=== PATIENT | female | born 1940 | race Caucasian/White ===

== ENCOUNTER → 2016-10-31 | Outpatient (CLI) | payer MEDICARE ==
[2016-10-31 08:05] LABS: ALT 35 U/L (9-52); AST 29 U/L (14-36); Cholesterol 161 mg/dL (<200); HDL Cholesterol 47 mg/dL (40-60); Triglycerides 395 mg/dL (<150)
== END | disposition home or self-care (01) ==
LOC: LABWHC1 07:32
PROVIDERS: ATTEND Internal Medicine Interventional Cardiology
DX: E78.2 Mixed hyperlipidemia (principal)
CPT/HCPCS: 36415; 80061; 84450; 84460

== ENCOUNTER → 2017-05-07 | Outpatient (CLI) | payer MEDICARE ==
[2017-05-07 08:43] LABS: ALT 36 U/L (9-52); AST 30 U/L (14-36); Alkaline Phosphatase 84 U/L (38-126); Anion Gap 11 mmol/L; Blood Urea Nitrogen 18 mg/dL (7-17); Calcium 9.2 mg/dL (8.4-10.2); Carbon Dioxide 25 mmol/L (22-30); Chloride 100 mmol/L (98-107); Cholesterol 188 mg/dL (<200); Glucose 104 mg/dL (74-99); HDL Cholesterol 46 mg/dL (40-60); Non-African American GFR(MDRD) >60 (>60 ml/min/1.73 sqM); Sodium 136 mmol/L (137-145); Total Bilirubin 0.5 mg/dL (0.2-1.3); Total Protein 6.9 g/dL (6.3-8.2)
== END | disposition home or self-care (01) ==
LOC: LABWHC1 07:43
PROVIDERS: ATTEND Internal Medicine Interventional Cardiology
DX: E78.2 Mixed hyperlipidemia (principal)
CPT/HCPCS: 36415; 80053; 80061

== ENCOUNTER → 2017-07-24 | Outpatient (CLI) | payer MEDICARE ==
[2017-07-24 08:27] LABS: ALT 213 U/L (9-52); AST 180 U/L (14-36); Cholesterol 198 mg/dL (<200); Creatine Kinase 96 U/L (30-135)
[2017-07-24 08:39] LABS: HDL Cholesterol 126 mg/dL (40-60)
== END | disposition home or self-care (01) ==
LOC: LABWHC1 07:49
PROVIDERS: ATTEND Internal Medicine Interventional Cardiology
DX: E78.2 Mixed hyperlipidemia (principal)
CPT/HCPCS: 36415; 80061; 82550; 84450; 84460

== ENCOUNTER → 2017-09-01 | Outpatient (CLI) | payer MEDICARE ==
[2017-09-01 08:49] LABS: ALT 40 U/L (9-52); AST 43 U/L (14-36)
== END | disposition home or self-care (01) ==
LOC: LABWHC1 08:12
PROVIDERS: ATTEND Internal Medicine Interventional Cardiology
DX: E78.2 Mixed hyperlipidemia (principal)
CPT/HCPCS: 36415; 84450; 84460

== ENCOUNTER → 2017-10-23 | Outpatient (CLI) | payer MEDICARE ==
[2017-10-23 08:52] LABS: ALT 31 U/L (9-52); AST 33 U/L (14-36); Cholesterol 135 mg/dL (<200); Creatine Kinase 88 U/L (30-135); HDL Cholesterol 57 mg/dL (40-60); LDL Cholesterol,Calculated 45 mg/dL (0-99); Triglycerides 165 mg/dL (<150)
== END | disposition home or self-care (01) ==
LOC: LABWHC1 08:07
PROVIDERS: ATTEND Internal Medicine Interventional Cardiology
DX: E78.2 Mixed hyperlipidemia (principal)
CPT/HCPCS: 36415; 80061; 82550; 84450; 84460

== ENCOUNTER → 2018-04-29 | Outpatient (CLI) | payer MEDICARE ==
[2018-04-29 08:58] LABS: Albumin 4.1 g/dL (3.5-5.0); Calcium 9.3 mg/dL (8.4-10.2); Potassium 4.3 mmol/L (3.5-5.1); Total Bilirubin 0.7 mg/dL (0.2-1.3); Total Protein 6.7 g/dL (6.3-8.2)
== END | disposition home or self-care (01) ==
LOC: LABWHC1 08:14
PROVIDERS: ATTEND Internal Medicine Interventional Cardiology
DX: E78.2 Mixed hyperlipidemia (principal)
CPT/HCPCS: 36415; 80053; 80061

== ENCOUNTER → 2018-11-03 | Outpatient (CLI) | payer MEDICARE ==
[2018-11-03 17:28] LABS: LDL Cholesterol,Calculated 41.4 mg/dL (0.0-131.0); VLDL Calculation 25.6 mg/dL (5.00-40.00)
== END | disposition home or self-care (01) ==
LOC: LABWHC1 08:17
PROVIDERS: ATTEND Internal Medicine Interventional Cardiology
DX: E78.2 Mixed hyperlipidemia (principal)
CPT/HCPCS: 36415; 80061; 84450; 84460

== ENCOUNTER → 2019-06-01 | Outpatient (CLI) | payer MEDICARE ==
[2019-06-01 18:07] LABS: African American GFR (CKD) 80.7 (60.0-200.0); Albumin 4.4 g/dL (3.80-4.90); Albumin/Globulin Ratio 2.32 (1.60-3.17); Anion Gap 7.1 mmol/L (4.00-12.00); BUN/Creat Ratio 31.25 Ratio (12.00-20.00); Calcium 9.1 mg/dL (8.7-10.3); Carbon Dioxide 27.9 mmol/L (21.6-31.8); Chol/HDL Ratio 2.53; Globulin 1.9 g/dL (1.6-3.3); LDL Cholesterol,Calculated 38.8 mg/dL (0.0-131.0); Potassium 4.3 mmol/L (3.5-5.5); Total Bilirubin 0.6 mg/dL (0.3-1.2); Total Protein 6.3 g/dL (6.2-8.2); VLDL Calculation 33.2 mg/dL (5.00-40.00)
== END | disposition home or self-care (01) ==
LOC: LABWHC1 09:06
PROVIDERS: ATTEND Nurse Practitioner Adult Health
DX: E78.2 Mixed hyperlipidemia (principal)
CPT/HCPCS: 36415; 80053; 80061

== ENCOUNTER → 2020-06-07 | Outpatient (CLI) | payer MEDICARE ==
[2020-06-07 18:19] LABS: African American GFR (CKD) 79.6 (60.0-200.0); Albumin 4.4 g/dL (3.80-4.90); Albumin/Globulin Ratio 2.2 (1.60-3.17); Anion Gap 7.7 mmol/L (4.00-12.00); BUN/Creat Ratio 22.5 Ratio (12.00-20.00); Calcium 9.7 mg/dL (8.7-10.3); Carbon Dioxide 27.3 mmol/L (21.6-31.8); Chol/HDL Ratio 2.68; LDL Cholesterol,Calculated 55.6 mg/dL (0.0-131.0); Non-African American GFR(CKD) 68.7 (60.0-200.0); Potassium 5.2 mmol/L (3.5-5.5); Total Bilirubin 0.9 mg/dL (0.3-1.2); Total Protein 6.4 g/dL (6.2-8.2); VLDL Calculation 28.4 mg/dL (5.00-40.00)
== END | disposition home or self-care (01) ==
LOC: LABWHC1 07:46
PROVIDERS: ATTEND Internal Medicine Interventional Cardiology
DX: E78.2 Mixed hyperlipidemia (principal)
CPT/HCPCS: 36415; 80053; 80061

== ENCOUNTER → 2020-12-11 | Outpatient (CLI) | payer MEDICARE ==
[2020-12-11 17:56] LABS: African American GFR (CKD) 60.8 (60.0-200.0); Albumin 4.4 g/dL (3.80-4.90); Anion Gap 9.2 mmol/L (4.00-12.00); Calcium 9.4 mg/dL (8.7-10.3); Carbon Dioxide 26.8 mmol/L (21.6-31.8); Chol/HDL Ratio 2.86; Globulin 2.2 g/dL (1.6-3.3); LDL Cholesterol,Calculated 57.8 mg/dL (0.0-131.0); Non-African American GFR(CKD) 52.4 (60.0-200.0); Potassium 5.1 mmol/L (3.5-5.5); Total Bilirubin 0.6 mg/dL (0.3-1.2); Total Protein 6.6 g/dL (6.2-8.2); VLDL Calculation 33.2 mg/dL (5.00-40.00)
== END | disposition home or self-care (01) ==
LOC: LABWHC1 08:06
PROVIDERS: ATTEND Obstetrics & Gynecology
DX: E78.2 Mixed hyperlipidemia (principal)
CPT/HCPCS: 36415; 80053; 80061

== ENCOUNTER → 2021-05-15 | Outpatient (CLI) | payer MEDICARE ==
[2021-05-15 14:13] LABS: African American GFR (CKD) 54.1 (60.0-200.0); Albumin 4.4 g/dL (3.80-4.90); Anion Gap 12.3 mmol/L (4.00-12.00); BUN/Creat Ratio 25.45 Ratio (12.00-20.00); Carbon Dioxide 23.7 mmol/L (21.6-31.8); Chol/HDL Ratio 2.53; Globulin 2.2 g/dL (1.6-3.3); LDL Cholesterol,Calculated 50.4 mg/dL (0.0-131.0); Non-African American GFR(CKD) 46.7 (60.0-200.0); Total Bilirubin 0.7 mg/dL (0.2-1.2); Total Protein 6.6 g/dL (6.2-8.2); VLDL Calculation 18.6 mg/dL (5.00-40.00)
== END | disposition home or self-care (01) ==
LOC: LABWHC1 08:04
PROVIDERS: ATTEND Nurse Practitioner Adult Health
DX: E78.2 Mixed hyperlipidemia (principal); I10 Essential (primary) hypertension
CPT/HCPCS: 36415; 80053; 80061

== ENCOUNTER → 2021-12-11 | Outpatient (CLI) | payer MEDICARE ==
[2021-12-11 14:27] LABS: Chol/HDL Ratio 2.53 Ratio; LDL Cholesterol,Calculated 49.2 mg/dL (0.0-131.0)
[2021-12-11 14:28] LABS: ALT 14 U/L (8-44); AST 31 U/L (13-35); Albumin 4.1 g/dL (3.8-4.9); Albumin/Globulin Ratio 1.59 (1.60-3.17); Alkaline Phosphatase 93 U/L (41-126); BUN/Creat Ratio 23.49 Ratio (12.00-20.00); Calcium 9.4 mg/dL (8.7-10.3); Carbon Dioxide 22.9 mmol/L (20.0-27.5); Chloride 98 mmol/L (96-109); Globulin 2.6 g/dL (1.6-3.3); Glucose 94 mg/dL (70-110); Non-African American GFR(CKD) 67.3 (60.0-200.0); Potassium 4.5 mmol/L (3.5-5.5); Sodium 134 mmol/L (135-145); Total Protein 6.7 g/dL (6.2-8.2)
== END | disposition home or self-care (01) ==
LOC: LABWHC1 08:48
PROVIDERS: ATTEND Nurse Practitioner Adult Health
DX: I10 Essential (primary) hypertension (principal); E78.2 Mixed hyperlipidemia
CPT/HCPCS: 36415; 80053; 80061

== ENCOUNTER → 2022-08-16 | Outpatient (CLI) | payer MEDICARE ==
[2022-08-16 14:37] LABS: ALT 19 U/L (8-44); AST 29 U/L (13-35); Chol/HDL Ratio 3.25 Ratio
== END | disposition home or self-care (01) ==
LOC: LABWHC1 08:00
PROVIDERS: ATTEND Internal Medicine Interventional Cardiology
DX: E78.2 Mixed hyperlipidemia (principal)
CPT/HCPCS: 36415; 80061; 84450; 84460

== ENCOUNTER → 2023-03-20 | Outpatient (CLI) | payer MEDICARE ==
[2023-03-20 11:39] LABS: ALT 17 U/L (8-44); AST 28 U/L (13-35); Albumin 4.2 d/dL (3.8-4.9); Albumin/Globulin Ratio 1.83 Ratio (1.60-3.17); Alkaline Phosphatase 92 U/L (41-126); Blood Urea Nitrogen 18.1 mg/dL (9.0-27.0); Calcium 9.2 mg/dL (8.7-10.3); Carbon Dioxide 22.5 mmol/L (21.6-31.8); Chloride 102 mmol/L (96-109); Chol/HDL Ratio 2.65 Ratio; Globulin 2.3 d/dL (1.6-3.3); Glucose 96 mg/dL (70-110); LDL Cholesterol,Calculated 45.3 mg/dL (0.0-131.0); Potassium 4.4 mmol/L (3.5-5.5); Sodium 138 mmol/L (135-145); Total Bilirubin 0.5 mg/dL (0.3-1.2); Total Protein 6.5 d/dL (6.2-8.2)
== END | disposition home or self-care (01) ==
LOC: LABWHC1 07:45
PROVIDERS: ATTEND Nurse Practitioner Adult Health
DX: I10 Essential (primary) hypertension (principal); E78.2 Mixed hyperlipidemia
CPT/HCPCS: 36415; 80053; 80061

== ENCOUNTER 2024-06-21 18:13 | Inpatient (IN) | payer MEDICARE ==
[2024-06-21 18:22] LABS: Glucose,Whole Blood 130 mg/dL (70-110)
--- NOTE | 2024-06-21 18:35 | ED ---
Neuro HPI - General Stated Complaint: rule out stroke Time Seen by Provider: 06/21/24 18:17 - History of Present Illness Is the patient presenting with stroke symptoms?: Yes Onset/Timin -: minutes(s) Initial Comments: Patient is an 84-year female past medical history of hypertension presenting today for aphasia. Started proximally 30 minutes prior to arrival. No history of strokes. EMS report that they noted significant aphasia that seem to be improving and went to the ED. Blood sugar was 126 for them. Systolic blood pressure 146. No history of strokes, not on thinners. No numbness or weakness of her extremities. No facial droop. No visual field changes. No headache. History is limited by patient's aphasia. Was able to state that she was at home but then speech becomes word salad like. Unable to identify cell phone on first attempt, is able to identify pen, when asked date states "18". Last Observed Normal: 05:30 Location: speech History of same: No Place: home Severity: mild - Related Data Home Medications: Home Medications Medication Instructions Recorded Confirmed Atorvastatin [Lipitor] 10 mg PO DAILY 06/21/24 06/21/24 Enalapril Maleate 20 mg PO BID 06/21/24 06/21/24 Metoprolol Tartrate [Lopressor] 25 mg PO BID 06/21/24 06/21/24 Omeprazole [PriLOSEC] 20 mg PO DAILY 06/21/24 06/21/24 cloNIDine HCL [Catapres] 0.1 mg PO BID 06/21/24 06/21/24 hydroCHLOROthiazide [Hydrodiuril] 25 mg PO DAILY 06/21/24 06/21/24 Allergies/Adverse Reactions: Allergies Allergy/AdvReac Type Severity Reaction Status Date / Time No Known Allergies Allergy Verified 06/21/24 19:51 Review of Systems ROS Statement: Those systems with pertinent positive or pertinent negative responses have been documented in the HPI. ROS Other: All systems not noted in ROS Statement are negative. Limitations: ROS unobtainable due to patients medical condition General Exam - General Exam Comments Initial Comments: PE: CONSTITUTIONAL: No apparent distress, well appearing SKIN: Warm, dry, no jaundice, hives or petechiae EYES: Pupils are equally round, extraocular movements intact without nystagmus, clear conjunctiva, non-icteric sclera HENT: Normocephalic, atraumatic, moist mucus membranes, oropharynx clear without exudates NECK: , Full range of motion, normal appearance PULMONARY: Clear to auscultation without wheezes, rhonchi, or rales, normal excursion, no accessory muscle use and no stridor CARDIOVASCULAR: Regular rate, rhythm, normal S1 and S2. No appreciated murmurs, rubs or gallops. Strong radial pulses with intact distal perfusion. No lower extremity edema GASTROINTESTINAL: Soft, active bowel sounds throughout, non-tender, non- distended, no palpable masses, no rebound or guarding. No hepatosplenomegaly MUSCULOSKELETAL: Extremities have no gross deformity, no edema, redness, or swelling. No calf swelling NEUROLOGIC:_a/o x 2, GCS 14, normal mentation, speech is somewhat aphasic and so seems somewhat confused, able to identify pen, unable to identify cell phone says "18" when asked the date, no facial droop,. Moves all extremities x 4 without motor or sensory deficit, no drift, no visual field deficits, speech is possibly somewhat dysarthric when patient has difficulty finding words, but other words are pronounced clearly , no nystagmus, PSYCHIATRIC:_normal mood and affect, thought process is clear and linear Stroke MDM - Lab Data Result diagrams: 06/21/24 18:20 06/21/24 18:20 Lab Results 06/21/24 06/21/24 06/21/24 Range/Units 18:20 18:20 18:20 WBC 5.2 (3.8-10.6) k/uL RBC 3.78 L (3.80-5.40) m/uL Hgb 11.5 (11.4-16.0) gm/dL Hct 33.2 L (34.0-46.0) % MCV 87.8 (80.0-100.0) fL MCH 30.3 (25.0-35.0) pg MCHC 34.6 (31.0-37.0) g/dL RDW 13.9 (11.5-15.5) % Plt Count 220 (150-450) k/uL MPV 9.7 Neutrophils % 54 % Lymphocytes % 33 % Monocytes % 6 % Eosinophils % 4 % Basophils % 1 % Neutrophils # 2.8 (1.3-7.7) k/uL Lymphocytes # 1.7 (1.0-4.8) k/uL Monocytes # 0.3 (0-1.0) k/uL Eosinophils # 0.2 (0-0.7) k/uL Basophils # 0.0 (0-0.2) k/uL PT 10.6 (10.0-12.5) sec INR 1.0 (<1.2) APTT 23.0 (22.0-30.0) sec Sodium 137 (137-145) mmol/L Potassium 3.8 (3.5-5.1) mmol/L Chloride 106 (98-107) mmol/L Carbon Dioxide 26 (22-30) mmol/L Anion Gap 5 mmol/L BUN 32 H (7-17) mg/dL Creatinine 0.82 (0.52-1.04) mg/dL Est GFR (CKD-EPI)AfAm 75 (>60 ml/min/1.73 sqM) Est GFR (CKD-EPI)NonAf 65 (>60 ml/min/1.73 sqM) Glucose 126 H (74-99) mg/dL POC Glucose (mg/dL) (70-110) mg/dL POC Glu Industrial Organizational Psychologist ID Calcium 9.8 (8.4-10.2) mg/dL Total Bilirubin 0.7 (0.2-1.3) mg/dL AST 32 (14-36) U/L ALT 15 (4-34) U/L Alkaline Phosphatase 83 (38-126) U/L Creatine Kinase 64 (30-135) U/L Troponin I (0.000-0.034) ng/mL Total Protein 6.6 (6.3-8.2) g/dL Albumin 4.1 (3.5-5.0) g/dL TSH 1.720 (0.465-4.680) mIU/L Serum Alcohol <10 mg/dL 06/21/24 06/21/24 Range/Units 18:20 18:20 WBC (3.8-10.6) k/uL RBC (3.80-5.40) m/uL Hgb (11.4-16.0) gm/dL Hct (34.0-46.0) % MCV (80.0-100.0) fL MCH (25.0-35.0) pg MCHC (31.0-37.0) g/dL RDW (11.5-15.5) % Plt Count (150-450) k/uL MPV Neutrophils % % Lymphocytes % % Monocytes % % Eosinophils % % Basophils % % Neutrophils # (1.3-7.7) k/uL Lymphocytes # (1.0-4.8) k/uL Monocytes # (0-1.0) k/uL Eosinophils # (0-0.7) k/uL Basophils # (0-0.2) k/uL PT (10.0-12.5) sec INR (<1.2) APTT (22.0-30.0) sec Sodium (137-145) mmol/L Potassium (3.5-5.1) mmol/L Chloride (98-107) mmol/L Carbon Dioxide (22-30) mmol/L Anion Gap mmol/L BUN (7-17) mg/dL Creatinine (0.52-1.04) mg/dL Est GFR (CKD-EPI)AfAm (>60 ml/min/1.73 sqM) Est GFR (CKD-EPI)NonAf (>60 ml/min/1.73 sqM) Glucose (74-99) mg/dL POC Glucose (mg/dL) 130 H (70-110) mg/dL POC Glu Industrial Organizational Psychologist ID Spivey Saturnino Calcium (8.4-10.2) mg/dL Total Bilirubin (0.2-1.3) mg/dL AST (14-36) U/L ALT (4-34) U/L Alkaline Phosphatase (38-126) U/L Creatine Kinase (30-135) U/L Troponin I 0.019 (0.000-0.034) ng/mL Total Protein (6.3-8.2) g/dL Albumin (3.5-5.0) g/dL TSH (0.465-4.680) mIU/L Serum Alcohol mg/dL - Thrombolytic Inclusion/Exclusion Thrombolytic Inclusion Criteria: Symptom Onset < 4.5 h - Medical Decision Making Was pt. sent in by a medical professional or institution (, PA, SALESFORCE CONSULTANT, urgent care, hospital, or usp...) When possible be specific @ -No Did you speak to anyone other than the patient for history (EMS, parent, family, police, friend...)? What history was obtained from this source @EMS personel Did you review nursing and triage notes (agree or disagree)? Why? @ -I reviewed and agree with nursing and triage notes Were old charts reviewed (outside hosp., previous admission, EMS record, old EKG, old radiological studies, urgent care reports/EKG's, usp records)? Report findings @ -No old charts available for review Differential Diagnosis (chest pain, altered mental status, abdominal pain women, abdominal pain men, vaginal bleeding, weakness, fever, dyspnea, syncope, headache, dizziness, GI bleed, back pain, seizure, CVA, palpatations, mental health, musculoskeletal)? @Differential CVA Ischemic stroke, hemorrhagic stroke, brain tumor, atypical migraine, seizure, hypoglycemia, electrolytes disturbance, myasthenia gravis.... This is not meant to be an all-inclusive list EKG interpreted by me (3pts min.). @ -Sinus rhythm, artifact present throughout, PVC noted, no obvious ST elevations or depressions, rate 79 bpm DE interval 160 ms, QRS duration 77 ms, QT/QTc 376/410 ms, normal axis X-rays interpreted by me (1pt min.). @ -No cardiomegaly, no consolidations, no pleural effusions CT interpreted by me (1pt min.). @ -CT brain shows no evidence of hemorrhage or mass effect, CTA shows no large vessel occlusion or dissection U/S interpreted by me (1pt. min.). @ -None done What testing was considered but not performed or refused? (CT, X-rays, U/S, labs)? Why? @ -None What meds were considered but not given or refused? Why? @ -Did consider today to place however based on NIH of 2 and improving symptoms as well as discussion with neurointerventionalist, Dr. Loya, who recommended medical management, risk of tNK outweighs potential benefit Did you discuss the management of the patient with other professionals (professionals i.e. , PA, SALESFORCE CONSULTANT, lab, RT, psych nurse, social contact worker, hris coordinator, teacher, antisubmarine weapons officer, business case analyst)? Give summary @Discussed with Dr. Loya, neurointerventionalist Was smoking cessation discussed for >3mins.? @ -No Was critical care preformed (if so, how long)? @ -Yes, 35 minutes, spent examining patient, reassessing, discussion with consultants, ordering and interpreting labs and imaging Were there social determinants of health that impacted care today? How? (Homelessness, low income, unemployed, alcoholism, drug addiction, transportation, low edu. Level, literacy, decrease access to med. care, penitentiary, rehab)? @ -No Was there de-escalation of care discussed even if they declined (Discuss DNR or withdrawal of care, Hospice)? @ -No What co-morbidities impacted this encounter? (DM, HTN, Smoking, COPD, CAD, Cancer, CVA, ARF, Chemo, Hep., AIDS, mental health diagnosis, sleep apnea, morbid obesity)? @ -Hypertension Was patient admitted / discharged? Hospital course, mention meds given and route, prescriptions, significant lab abnormalities, going to OR and other pe rtinent info. @ -Hospital course- admission patient seen and assessed on arrival. She is an 84-year-old female past medical history of hypertension not on thinners presenting today for aphasia. Per EMS report aphasia is improving and route to the hospital. No other focal deficits noted. On my assessment patient is awake and alert oriented to self, states that she is 83 years old, when asked the date she states 18, when asked to write in a telephone she is unable to, was able to identify a pen and watch. Otherwise grossly no focal deficits. Speech alternates between clear, but when patient has word finding difficulty some words are not pronounced clearly. Stroke alert called due to patient's last known well being 30 minutes prior to arrival and deficits noted. Taken for scan. Blood pressure on arrival systolic 190, 10 mg IV labetalol ordered. NIH 2-3 (states "18 when asked date, oriented to self and place, mild aphasia, possible dysarthria however dysarthria seems more likely 2/2 aphasia) Sp[address] Dr[address] De, noninterventionist, recs medical management. No tNK. Imaging reviewed by myself, I see no evidence of hemorrhage on CT brain. Full dose aspirin ordered. On repeat blood pressure patient's systolic blood pressure decreased to 160 spontaneously. Labetalol discontinued. Will allow for permissive hypertension. CT brain CTA read as no acute process does show atherosclerotic disease creating multifocal moderate to severe stenosis of the bilateral carotid siphons as well as a right vertebral artery V4 segment. atherosclerotic disease creating multifocal moderate to severe stenosis of the bilateral carotid siphons as well as a right vertebral artery V4 segment. Updated patient and family to findings. On reassessment patient's neurologic exam remained stable. Aphasia present without new deficits. Plan for admission for CVA. Patient does remain mildly aphasic. Patient and family agreeable plan of care. Discussed case with Dr. Dowling, who kindly accept patient for admission. Patient admitted in stable condition. Stroke admission order set placed. Undiagnosed new problem with uncertain prognosis? @ -No Drug Therapy requiring intensive monitoring for toxicity (Heparin, Nitro, Insulin, Cardizem)? @ -No Were any procedures done? @ -No Diagnosis/symptom? @Acute CVA Acute, or Chronic, or Acute on Chronic? @ -Acute Uncomplicated (without systemic symptoms) or Complicated (systemic symptoms)? @ -Complicated Side effects of treatment? @ -No Exacerbation, Progression, or Severe Exacerbation? @ -No Poses a threat to life or bodily function? How? (Chest pain, USA, HI, pneumonia, PE, COPD, DKA, ARF, appy, cholecystitis, CVA, Diverticulitis, Homicidal, Suicidal, threat to staff... and all critical care pts) @ -Yes, stroke, if allowed to continue unmonitored or untreated could lead to worse outcomes, could have larger CVA causing further threat to life and bodily function Course Vital Signs 06/21/24 06/21/24 06/21/24 18:15 18:20 18:35 Temperature Pulse Rate 67 89 80 Respiratory 18 18 18 Rate Blood Pressure 190/69 164/74 O2 Sat by Pulse 99 99 99 Oximetry 06/21/24 06/21/24 06/21/24 18:50 19:05 19:20 Temperature 97.1 F L Pulse Rate 80 71 81 Respiratory 18 18 22 Rate Blood Pressure 160/70 147/80 128/59 O2 Sat by Pulse 95 100 98 Oximetry 06/21/24 06/21/24 06/21/24 20:05 20:35 21:08 Temperature 97.6 F 97.4 F L Pulse Rate 93 71 67 Respiratory 20 20 18 Rate Blood Pressure 154/116 155/98 155/70 O2 Sat by Pulse 98 98 98 Oximetry 06/21/24 06/21/24 06/21/24 21:35 22:08 22:35 Temperature 97.6 F 97.3 F L Pulse Rate 94 64 66 Respiratory 18 18 18 Rate Blood Pressure 154/61 149/72 139/69 O2 Sat by Pulse 98 98 98 Oximetry 06/21/24 06/21/24 06/22/24 23:08 23:35 00:08 Temperature 97.4 F L 97.5 F L 97.5 F L Pulse Rate 60 61 59 L Respiratory 18 18 18 Rate Blood Pressure 174/70 160/66 153/69 O2 Sat by Pulse 98 98 98 Oximetry 06/22/24 00:35 Temperature Pulse Rate 58 L Respiratory 18 Rate Blood Pressure 157/72 O2 Sat by Pulse 99 Oximetry Disposition Clinical Impression: Cerebrovascular accident (CVA), Aphasia Disposition: ADMITTED IP TO THIS HOSP Condition: Stable
[2024-06-21] MEDS: SODIUM CHLORIDE 0.9% 500 ML 500 ML IV STA (18:40)
--- NOTE | 2024-06-21 18:45 | CT ---
EXAMINATION TYPE: CODE STROKE: CT brain wo contr CT DLP: 1114.6 mGycm, Automated exposure control for dose reduction was used. DATE OF EXAM: 06/21/2024 6:35 PM COMPARISON: None. CLINICAL INDICATION: Female, 84 years old with history of Neuro deficit, acute, stroke suspected, Exp ressive Aphasia, confusion. TECHNIQUE: Brain: Axial CT images of the brain were obtained with coronal and sagittal reformats created and rev iewed. Contrast used: None. Oral contrast used: None. FINDINGS: Brain: Extra-axial spaces: No abnormal extra-axial fluid collections. Ventricular system: Within normal limits Cerebral parenchyma: No acute intraparenchymal hemorrhage or mass effect. The grant-white junction is well differentiated. Cerebellum: Unremarkable. Mass effect: No evidence of midline shift. Intracranial vasculature: Atherosclerotic calcifications of the intracranial vessels. Soft tissues: Normal. Calvarium/osseous structures: No depressed skull fracture. Paranasal sinuses and mastoid air cells: Mild scattered paranasal sinus disease. Visualized orbits: Orbital contents are intact. IMPRESSION: No acute intracranial process. [facility], , 06/21/2024 6:43 PM
[2024-06-21 18:51] LABS: Basophils % (A) 1 %; Eosinophils # (A) 0.2 k/uL (0-0.7); Eosinophils % (A) 4 %; HCT 33.2 % (34.0-46.0); HGB 11.5 gm/dL (11.4-16.0); Lymphocytes # (A) 1.7 k/uL (1.0-4.8); Lymphocytes % (A) 33 %; MCH 30.3 pg (25.0-35.0); MCHC 34.6 g/dL (31.0-37.0); MCV 87.8 fL (80.0-100.0); Mean Platelet Volume 9.7; Monocytes # (A) 0.3 k/uL (0-1.0); Monocytes % (A) 6 %; Neutrophils # (A) 2.8 k/uL (1.3-7.7); Neutrophils % (A) 54 %; Platelet Count 220 k/uL (150-450); RBC 3.78 m/uL (3.80-5.40); RDW 13.9 % (11.5-15.5); WBC 5.2 k/uL (3.8-10.6)
[2024-06-21 18:55] LABS: Prothrombin Time 10.6 sec (10.0-12.5)
[2024-06-21 19:06] LABS: ALT 15 U/L (4-34); AST 32 U/L (14-36); African American GFR (CKD) 75 (>60 ml/min/1.73 sqM); Albumin 4.1 g/dL (3.5-5.0); Alcohol <10 mg/dL; Alkaline Phosphatase 83 U/L (38-126); Anion Gap 5 mmol/L; Blood Urea Nitrogen 32 mg/dL (7-17); Calcium 9.8 mg/dL (8.4-10.2); Carbon Dioxide 26 mmol/L (22-30); Chloride 106 mmol/L (98-107); Creatine Kinase 64 U/L (30-135); Glucose 126 mg/dL (74-99); Non-African American GFR(CKD) 65 (>60 ml/min/1.73 sqM); Potassium 3.8 mmol/L (3.5-5.1); Sodium 137 mmol/L (137-145); Total Bilirubin 0.7 mg/dL (0.2-1.3); Total Protein 6.6 g/dL (6.3-8.2)
--- NOTE | 2024-06-21 19:33 | CT ---
EXAMINATION TYPE: CT angio head neck CT DLP: mGycm, Automated exposure control for dose reduction was used. DATE OF EXAM: 06/21/2024 6:57 PM COMPARISON: CT head same day. CLINICAL INDICATION:Female, 84 years old with history of Neuro deficit, acute, stroke suspected; [facility], TECHNIQUE: Axially acquired helical CT angiogram of the head and neck was obtained with contrast. Axi al images are supplemented with 3D reconstructions which [facility] NASCET criteria used. Contrast used: 100 cc of Isovue 370 contrast media mL of , Oral contrast used: None. FINDINGS: CTA HEAD: The visualized portions of the internal carotid arteries, middle cerebral arteries, anterior cerebral arteries, and posterior cerebral arteries are patent. Atherosclerotic disease of the carotid siphons is multifocal moderate to severe stenoses. The basilar and vertebral arteries are patent. Atherosclerotic disease creates multifocal moderate st enoses of the right V4 segment. CTA NECK: Right Carotid System: The common carotid artery and external carotid artery are patent. The carotid bifurcation demonstrate s no evidence of hemodynamically significant stenosis. The remaining portions of the internal carotid artery demonstrate normal size without significant narrowing. Left Carotid System: The common carotid artery and external carotid artery are patent. The carotid bifurcation demonstrate s no evidence of hemodynamically significant stenosis. The remaining portions of the internal carotid artery demonstrate normal size without significant narrowing. Vertebral arteries are patent without evidence hemodynamically significant stenosis. There is a three-vessel aortic arch. The origins of the great vessels are patent. No evidence of hemo dynamically significant stenosis. Upper thorax: Unremarkable. IMPRESSION: 1. No evidence of dissection of the cervical internal carotid arteries or vertebral arteries or any e vidence of significant stenosis at the carotid bifurcations. 2. No evidence of intracranial vascular occlusion. 3. Atherosclerotic disease creating multifocal moderate to severe stenoses of the bilateral carotid s iphons as well as the right vertebral artery V4 segment. [facility], , 06/21/2024 7:31 PM
[2024-06-21] MEDS: LABETALOL 5 MG/ML VIAL MDV IVP STA (20:33)
[2024-06-21] MEDS: ASPIRIN 325 MG TAB PO STA (20:48)
[2024-06-21] MEDS ORDERED: NALOXONE 0.4 MG/ML 1 ML VIAL IV PRN (20:52)
--- NOTE | 2024-06-21 20:53 | XR ---
EXAMINATION TYPE: XR chest 2V DATE OF EXAM: 06/21/2024 8:47 PM CLINICAL INDICATION:Female, 84 years old with history of altered mental status; [facility] COMPARISON: None TECHNIQUE: XR chest 2V Frontal and lateral views of the chest. FINDINGS: Lungs/Pleura: There is no evidence of pleural effusion, focal consolidation, or pneumothorax. Pulmonary vascularity: Unremarkable. Heart/mediastinum: Cardiomediastinal silhouette is unremarkable. Musculoskeletal: No acute osseous pathology. IMPRESSION: No acute cardiopulmonary disease/process. [facility], , 06/21/2024 8:50 PM
[2024-06-21] MEDS ORDERED: MAG HYDROX/AL HYDROX/SIMETH 30 ML CUP PO PRN (20:57)
[2024-06-21] MEDS ORDERED: CALCIUM CARBONATE 500 MG CHEWABLE PO PRN (20:57)
[2024-06-21] MEDS ORDERED: traMADol 50 MG TAB PO PRN (20:57)
[2024-06-21] MEDS ORDERED: ACETAMINOPHEN TAB 325 MG TAB PO PRN (20:57)
[2024-06-21] MEDS ORDERED: FAMOTIDINE 20 MG TAB PO SCH (21:00)
[2024-06-21] MEDS: FAMOTIDINE 20 MG TAB PO SCH (21:42)
[2024-06-21] MEDS: DEXTROSE 5%-0.9% NACL 1,000 ML IV SCH (23:46)
[2024-06-21] MEDS: HEPARIN SODIUM,PORCINE 5,000 UNIT/ML 1 ML VIAL SQ SCH (23:48)
[2024-06-22] MEDS: lisinopriL 20 MG TAB PO SCH (08:40)
[2024-06-22] MEDS: hydroCHLOROthiazide 25 MG TAB PO SCH (08:40)
[2024-06-22] MEDS: METOPROLOL TARTRATE 25 MG TAB PO SCH (08:40)
[2024-06-22] MEDS: ASPIRIN 325 MG TAB PO SCH (08:41)
[2024-06-22] MEDS: ATORVASTATIN 10 MG TAB PO SCH (08:41)
[2024-06-22] MEDS: cloNIDine HCL 0.1 MG TAB PO SCH (08:41)
--- NOTE | 2024-06-22 08:49 | P.HPIM ---
History of Present Illness H&P Date: 06/22/24 This is an 84-year-old female who presented to the emergency department with complaints of aphasia. Symptoms started approximately 30 minutes prior to arrival. EMS reports that patient had significant aphasia that did improve during transport to the emergency room. Patient does not have any history of prior strokes, she is not on any blood thinners. Patient reports no numbness or weakness of her extremities. Patient's speech has improved since admission, but is still slurred at times. When asked the date for today, she said Friday. Further medical history as noted below. Review of Systems Constitutional: Denies chills, Denies fever Cardiovascular: Denies chest pain, Denies dyspnea on exertion Respiratory: Denies cough, Denies dyspnea Gastrointestinal: Denies abdominal pain, Denies nausea, Denies vomiting Musculoskeletal: Denies arm numbness/tingling, Denies leg numbness/tingling Neurological: Reports aphasia, Denies headaches, Denies motor disturbance, Denies numbness, Denies tingling, Denies weakness Past Medical History Past Medical History: Hypertension, Myocardial Infarction (MO) History of Any Multi-Drug Resistant Organisms: None Reported Past Surgical History: Heart Catheterization With Stent Additional Past Surgical History / Comment(s): 1 cardiac stent Past Psychological History: Anxiety Smoking Status: Never smoker Past Alcohol Use History: None Reported Past Drug Use History: None Reported Medications and Allergies Home Medications Medication Instructions Recorded Confirmed Type Atorvastatin [Lipitor] 10 mg PO DAILY 06/21/24 06/21/24 History Enalapril Maleate 20 mg PO BID 06/21/24 06/21/24 History Metoprolol Tartrate [Lopressor] 25 mg PO BID 06/21/24 06/21/24 History Omeprazole [PriLOSEC] 20 mg PO DAILY 06/21/24 06/21/24 History cloNIDine HCL [Catapres] 0.1 mg PO BID 06/21/24 06/21/24 History hydroCHLOROthiazide [Hydrodiuril] 25 mg PO DAILY 06/21/24 06/21/24 History Allergies Allergy/AdvReac Type Severity Reaction Status Date / Time No Known Allergies Allergy Verified 06/21/24 19:51 Physical Exam Vitals: Vital Signs Temp Pulse Resp BP Pulse Ox 06/22/24 08:33 98.1 F 34 L 18 185/83 97 06/22/24 07:28 97.9 F 62 18 180/92 98 06/22/24 06:07 57 L 17 162/77 97 06/22/24 05:05 56 L 18 148/71 98 06/22/24 04:05 97.3 F L 65 18 167/69 98 06/22/24 03:05 54 L 18 158/59 98 06/22/24 02:08 53 L 18 155/64 98 06/22/24 01:35 97.6 F 55 L 18 157/72 98 06/22/24 01:05 68 18 160/61 98 06/22/24 00:35 58 L 18 157/72 99 06/22/24 00:08 97.5 F L 59 L 18 153/69 98 06/21/24 23:35 97.5 F L 61 18 160/66 98 06/21/24 23:08 97.4 F L 60 18 174/70 98 06/21/24 22:35 97.3 F L 66 18 139/69 98 06/21/24 22:08 97.6 F 64 18 149/72 98 06/21/24 21:35 94 18 154/61 98 06/21/24 21:08 67 18 155/70 98 06/21/24 20:35 97.4 F L 71 20 155/98 98 06/21/24 20:05 97.6 F 93 20 154/116 98 06/21/24 19:20 97.1 F L 81 22 128/59 98 06/21/24 19:05 71 18 147/80 100 06/21/24 18:50 80 18 160/70 95 06/21/24 18:35 80 18 164/74 99 06/21/24 18:20 89 18 99 06/21/24 18:15 67 18 190/69 99 Intake and Output 06/21/24 06/22/24 06/22/24 22:59 06:59 14:59 Other: Weight 58.695 kg - Constitutional General appearance: cooperative, no acute distress - EENT Eyes: PERRLA - Neck Neck: no lymphadenopathy, normal ROM, no rigidity - Respiratory Respiratory: bilateral: CTA - Cardiovascular Rhythm: regular Heart sounds: normal: S1, S2 - Gastrointestinal General gastrointestinal: soft, no tenderness - Integumentary Integumentary: normal, normal turgor - Neurologic slightly slurred speech, patient is able to move all 4 extremities and good strength is noted. - Psychiatric alert to person Results CBC & Chem 7: 06/21/24 18:20 06/21/24 18:20 Labs: Abnormal Lab Results - Last 24 Hours (Table) 06/21/24 06/21/24 06/21/24 Range/Units 18:20 18:20 18:20 RBC 3.78 L (3.80-5.40) m/uL Hct 33.2 L (34.0-46.0) % BUN 32 H (7-17) mg/dL Glucose 126 H (74-99) mg/dL POC Glucose (mg/dL) 130 H (70-110) mg/dL Assessment and Plan (1) Aphasia Current Visit: Yes Status: Acute Code(s): R47.01 - APHASIA SNOMED Code(s): 71733900 (2) Hypertension Current Visit: Yes Status: Acute Code(s): I10 - ESSENTIAL (PRIMARY) HYPERTENSION SNOMED Code(s): 95641774 (3) History of MO (myocardial infarction) Current Visit: Yes Status: Acute Code(s): I25.2 - OLD MYOCARDIAL INFARCTION SNOMED Code(s): 332548737 Plan: Continue home medications. Appreciate neurology consult. Check CBC and CMP in the morning. Consult to physical occupational and speech therapy. Patient seen and evaluated by nurse practitioner, physician in agreement with plan
[2024-06-22 12:01] LABS: Chol/HDL Ratio 2.71 Ratio; LDL Cholesterol,Calculated 49.5 mg/dL (0.0-131.0)
--- NOTE | 2024-06-22 17:16 | P.CNNES ---
History of Present Illness Consult date: 06/22/24 Requesting physician: Frances Lim Reason for Consult: cva History of Present Illness: This is a 84-year-old woman who presented emergency department because of speech difficulty. History is obtained from the daughter since patient has significant aphasia and cannot provide the history. According to the daughter yesterday her symptoms began at 5:30 PM and last normal was 5 PM. She stated that the patient is having difficulty getting her words out. Per the daughter patient does not want to be here and she wants to be started but the daughter does not want her to leave. Does not appear the patient has any focal deficit from limitation of the history. According to the daughter patient does not have any underlying A- fib. No history of stroke. She is on aspirin 81 mg daily. She does have underlying history of coronary artery disease and had a stent about 20 years ago and above. Some of the workup during this hospital visit consisted of: Initial serum glucose is 126 TSH is 1.720 Lipid panel also triglyceride 169, cholesterol 132, LDL is 49 and HDL is 48. CT of the head is reported as no acute intracranial process. I personally reviewed the CT and agree with the report. CT angiography of the head and neck is reported as no evidence of dissection of cervical internal carotid artery or vertebral artery or any evidence of significant stenosis at the carotid bifurcation. No evidence of intracranial vascular occlusion. 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 Code stroke was activated by the ED physician since came within [place]. The ED physician spoke with Dr. Rubio. NIH stroke scale per ED team is 2-3 patient had mild aphasia, possible dysarthria and this seems that she had some orientation issue. ED physician possibly the patient has dysarthria due to the aphasia as well as towards the end the patient remains to have mild aphasia. The stroke attending recommended no IV thrombolytic and recommended medical management. I assume he recommended that because of the risk outweigh the benefit. Review of Systems Limited Past Medical History Past Medical History: Hypertension, Myocardial Infarction ([place]) Last Myocardial Infarction Date:: 09/15/2003 History of Any Multi-Drug Resistant Organisms: None Reported Past Surgical History: Heart Catheterization With Stent Additional Past Surgical History / Comment(s): 1 cardiac stent Date of Last Stent Placement:: 09/15/2003 Smoking Status: Never smoker Medications and Allergies Home Medications Medication Instructions Recorded Confirmed Type Atorvastatin [Lipitor] 10 mg PO DAILY 06/21/24 06/21/24 History Enalapril Maleate 20 mg PO BID 06/21/24 06/21/24 History Metoprolol Tartrate [Lopressor] 25 mg PO BID 06/21/24 06/21/24 History Omeprazole [PriLOSEC] 20 mg PO DAILY 06/21/24 06/21/24 History cloNIDine HCL [Catapres] 0.1 mg PO BID 06/21/24 06/21/24 History hydroCHLOROthiazide [Hydrodiuril] 25 mg PO DAILY 06/21/24 06/21/24 History Allergies Allergy/AdvReac Type Severity Reaction Status Date / Time No Known Allergies Allergy Verified 06/21/24 19:51 Physical Examination - Vital Signs Vital Signs: Vital Signs Temp Pulse Resp BP Pulse Ox 06/22/24 14:00 62 16 126/52 97 06/22/24 12:05 97.8 F 51 L 19 141/56 100 06/22/24 11:16 97.8 F 51 L 18 154/66 99 06/22/24 09:49 65 18 102/83 97 06/22/24 08:33 98.1 F 34 L 18 185/83 97 06/22/24 08:05 97.9 F 61 18 161/71 98 06/22/24 07:28 97.9 F 62 18 180/92 98 06/22/24 06:07 57 L 17 162/77 97 06/22/24 05:05 56 L 18 148/71 98 06/22/24 04:05 97.3 F L 65 18 167/69 98 06/22/24 03:05 54 L 18 158/59 98 06/22/24 02:08 53 L 18 155/64 98 06/22/24 01:35 97.6 F 55 L 18 157/72 98 06/22/24 01:05 68 18 160/61 98 06/22/24 00:35 58 L 18 157/72 99 06/22/24 00:08 97.5 F L 59 L 18 153/69 98 06/21/24 23:35 97.5 F L 61 18 160/66 98 06/21/24 23:08 97.4 F L 60 18 174/70 98 06/21/24 22:35 97.3 F L 66 18 139/69 98 06/21/24 22:08 97.6 F 64 18 149/72 98 06/21/24 21:35 94 18 154/61 98 06/21/24 21:08 67 18 155/70 98 06/21/24 20:35 97.4 F L 71 20 155/98 98 06/21/24 20:05 97.6 F 93 20 154/116 98 06/21/24 19:20 97.1 F L 81 22 128/59 98 06/21/24 19:05 71 18 147/80 100 06/21/24 18:50 80 18 160/70 95 06/21/24 18:35 80 18 164/74 99 06/21/24 18:20 89 18 99 06/21/24 18:15 67 18 190/69 99 Intake and Output 06/22/24 06/22/24 06/22/24 06:59 14:59 22:59 Other: Weight 58.695 kg General: Standing up next bed and does not appear in acute distress. Neuro: Very Limited. Patient is severely expressive aphasic. Wants to be left alone and wants to go home. No facial weakness from limitation. Does not appear leg weakness from limitation or extremity weakness. Results - Laboratory Findings CBC and BMP: 06/21/24 18:20 06/21/24 18:20 Abnormal Lab Findings: Abnormal Labs 06/21/24 06/21/24 06/21/24 18:20 18:20 18:20 RBC 3.78 L Hct 33.2 L BUN 32 H Glucose 126 H POC Glucose (mg/dL) 130 H Triglycerides 06/22/24 06:19 RBC Hct BUN Glucose POC Glucose (mg/dL) Triglycerides 169.00 H Assessment and Plan Assessment: This is an 84-year-old woman who presents the emergency department on 06/21/2024 because of expressive aphasia. Per the ED team NIH stroke scale was 2-3 and code stroke was activated and no IV TNK was recommended by stroke attending and per ED physician had mild aphasia. Today patient has severe expressive aphasia and wants to go home. Acute expressive aphasia likely due to acute ischemic stroke. 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 Plan: Patient was given aspirin 325 once in the ED and was started on aspirin 325 mg by ED physician (at home was on 81mg daily). In addition, I started Plavix 75mg daily. I increased lipitor from 10mg daily to 40mg daily for secondary stroke prophylaxis. Ordered MRI of the brain, 2D echo Continue neurochecks Cardiac monitoring PT OT and TILE FITTER are consulted Recommend permissive hypertension for an additional 24 hours. Treat the systolic blood pressure if it is more than 220 and diastolic more than 110. Will defer the rest of the medical management to primary and other specialist For DVT prophylaxis the patient is on subcu heparin 5000 units every 8 hours. The plan discussed with the patient's daughter who is at bedside. Thank you for the consultation. Time with Patient: Greater than 30
[2024-06-22] MEDS: CLOPIDOGREL 75 MG TAB PO SCH (17:38)
[2024-06-22] MEDS: LORazepam 2 MG/ML INJ IV PRN (21:50)
[2024-06-23 07:24] LABS: HCT 34.6 % (34.0-46.0); HGB 11.3 gm/dL (11.4-16.0); MCH 29.8 pg (25.0-35.0); MCHC 32.7 g/dL (31.0-37.0); Mean Platelet Volume 7.6; Platelet Count 196 k/uL (150-450); RDW 13.4 % (11.5-15.5)
[2024-06-23 07:36] LABS: ALT 15 U/L (4-34); AST 34 U/L (14-36); African American GFR (CKD) 80 (>60 ml/min/1.73 sqM); Albumin 3.8 g/dL (3.5-5.0); Alkaline Phosphatase 80 U/L (38-126); Anion Gap 7 mmol/L; Blood Urea Nitrogen 20 mg/dL (7-17); Calcium 9.4 mg/dL (8.4-10.2); Carbon Dioxide 23 mmol/L (22-30); Chloride 105 mmol/L (98-107); Glucose 92 mg/dL (74-99); Non-African American GFR(CKD) 69 (>60 ml/min/1.73 sqM); Potassium 3.9 mmol/L (3.5-5.1); Sodium 135 mmol/L (137-145); Total Bilirubin 0.9 mg/dL (0.2-1.3); Total Protein 6.3 g/dL (6.3-8.2)
--- NOTE | 2024-06-23 08:37 | P.PN ---
Subjective Progress Note Date: 06/23/24 Principal diagnosis: CVA. Patient was seen this morning however I suspect she is sedated secondary to a dose of Ativan secondary to agitation last night. I will DC for now. She does have oral Xanax written as needed. She is not necessary responsive to stimuli. Objective - Vital Signs Vital signs: Vital Signs Temp 97.6 F 06/22/24 17:20 Pulse 68 06/23/24 04:00 Resp 20 06/23/24 04:00 BP 122/72 06/23/24 04:00 Pulse Ox 94 L 06/23/24 04:00 FiO2 Intake & Output 06/22/24 06/23/24 06/23/24 18:59 06:59 18:59 Intake Total 0 Balance 0 Weight 58.695 kg 61 kg Intake: Oral 0 Other: Voiding Method Toilet # Voids 0 - Constitutional General appearance: Present: no acute distress - Neck Neck: Absent: lymphadenopathy - Respiratory Respiratory: bilateral: diminished - Cardiovascular Rhythm: regular Heart sounds: normal: S1, S2 Abnormal Heart Sounds: Absent: S3 Gallop - Gastrointestinal General gastrointestinal: Present: soft. Absent: tenderness - Integumentary Integumentary: Absent: cellulitis - Labs CBC & Chem 7: 06/23/24 06:58 06/23/24 06:58 Labs: Abnormal Lab Results - Last 24 Hours (Table) 06/22/24 06/23/24 06/23/24 Range/Units 06:19 06:58 06:58 Hgb 11.3 L (11.4-16.0) gm/dL Sodium 135 L (137-145) mmol/L BUN 20 H (7-17) mg/dL Triglycerides 169.00 H (0.00-149.00) mg/dL Assessment and Plan (1) Aphasia Current Visit: Yes Status: Acute Code(s): R47.01 - APHASIA SNOMED Code(s): 57254758 (2) Cerebrovascular accident (CVA) Current Visit: Yes Status: Acute Code(s): I63.9 - CEREBRAL INFARCTION, UNSPE CIFIED SNOMED Code(s): 392201407 (3) History of [place] (myocardial infarction) Current Visit: Yes Status: Acute Code(s): I25.2 - OLD MYOCARDIAL INFARCTION SNOMED Code(s): 876442851 (4) Hypertension Current Visit: Yes Status: Acute Code(s): I10 - ESSENTIAL (PRIMARY) HYPERTENSION SNOMED Code(s): 17645953 Plan: DC Ativan. Check CBC and CMP in AM. Await echocardiogram with MRI of the brain. Continue therapy.
[2024-06-23] MEDS: ALPRAZolam 0.25 MG TAB PO PRN (09:41)
[2024-06-23] MEDS: ATORVASTATIN 40 MG TAB PO SCH (09:41)
[2024-06-23] MEDS ORDERED: LORazepam 2 MG/ML INJ IV PRN (11:06)
--- NOTE | 2024-06-23 14:01 | P.PN ---
Subjective Progress Note Date: 06/23/24 I am following-up with patient and she is accompanied with her children. Per family members she was agitated and restless but now sleeping. She continues to be aphasic. Objective - Vital Signs Vital signs: Vital Signs Temp 97.6 F 06/22/24 17:20 Pulse 89 06/23/24 12:00 Resp 18 06/23/24 12:00 BP 125/52 06/23/24 12:00 Pulse Ox 96 06/23/24 12:00 FiO2 Intake & Output 06/22/24 06/23/24 06/23/24 18:59 06:59 18:59 Intake Total 0 Balance 0 Weight 58.695 kg 61 kg Intake: Oral 0 Other: Voiding Method Toilet Toilet # Voids 0 - Exam General: Lying in bed and does not appear in acute distress. Is sleeping. Neuro: Is sleeping so limited. Does not appear facial weakness at baseline from limitation. Some of the workup during this hospital visit consisted of: Initial serum glucose is 126 Serum alcohol is <10. TSH is 1.720 Lipid panel also triglyceride 169, cholesterol 132, LDL is 49 and HDL is 48. CT of the head is reported as no acute intracranial process. I personally reviewed the CT and agree with the report. CT angiography of the head and neck is reported as no evidence of dissection of cervical internal carotid artery or vertebral artery or any evidence of significant stenosis at the carotid bifurcation. No evidence of intracranial vascular occlusion. Atherosclerotic disease creating a multifocal moderate to s evere stenosis of bilateral carotid siphons as well as the right vertebral artery V4 segment. Code stroke was activated by the ED physician since came within [place]. The ED physician spoke with Dr. Rubio. NIH stroke scale per ED team is 2-3 patient had mild aphasia, possible dysarthria and this seems that she had some orientation issue. ED physician possibly the patient has dysarthria due to the aphasia as well as towards the end the patient remains to have mild aphasia. The stroke attending recommended no IV thrombolytic and recommended medical management. I assume he recommended that because of the risk outweigh the benefit. - Labs CBC & Chem 7: 06/23/24 06:58 06/23/24 06:58 Labs: Abnormal Lab Results - Last 24 Hours (Table) 06/23/24 06/23/24 Range/Units 06:58 06:58 Hgb 11.3 L (11.4-16.0) gm/dL Sodium 135 L (137-145) mmol/L BUN 20 H (7-17) mg/dL Assessment and Plan Assessment: This is an 84-year-old woman who presents the emergency department on 06/21/2024 because of expressive aphasia. Per the ED team NIH stroke scale was 2-3 and code stroke was activated and no IV TNK was recommended by stroke attending and per ED physician had mild aphasia. Today patient has severe expressive aphasia and wants to go home. Acute expressive aphasia likely due to acute ischemic stroke. 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 Plan: Continue aspirin 325 mg by ED physician (at home was on 81mg daily). In addition, I started Plavix 75mg daily. Continue Lipitor 40mg daily for secondary stroke prophylaxis. Pending MRI of the brain, 2D echo Continue neurochecks Cardiac monitoring PT OT and SHELL CORE AND MOLDING SUPERVISOR are consulted Recommend normotensive blood pressure. Will defer the rest of the medical management to primary and other specialist Family is concerned patient might have UTI and wants consideration of testing and I will defer to primary team. For DVT prophylaxis the patient is on subcu heparin 5000 units every 8 hours. The plan discussed with the patient's children who are bedside. Time with Patient: Less than 30
[2024-06-24 06:47] LABS: HCT 34.8 % (34.0-46.0); HGB 11.3 gm/dL (11.4-16.0); MCH 29.1 pg (25.0-35.0); MCHC 32.5 g/dL (31.0-37.0); MCV 89.5 fL (80.0-100.0); Mean Platelet Volume 7.7; Platelet Count 258 k/uL (150-450); RBC 3.89 m/uL (3.80-5.40); RDW 13.4 % (11.5-15.5); WBC 5.3 k/uL (3.8-10.6)
[2024-06-24 07:27] LABS: ALT 15 U/L (4-34); AST 35 U/L (14-36); African American GFR (CKD) 75 (>60 ml/min/1.73 sqM); Albumin 3.6 g/dL (3.5-5.0); Alkaline Phosphatase 77 U/L (38-126); Anion Gap 7 mmol/L; Blood Urea Nitrogen 22 mg/dL (7-17); Calcium 9.3 mg/dL (8.4-10.2); Carbon Dioxide 26 mmol/L (22-30); Chloride 104 mmol/L (98-107); Glucose 91 mg/dL (74-99); Non-African American GFR(CKD) 65 (>60 ml/min/1.73 sqM); Potassium 4.3 mmol/L (3.5-5.1); Sodium 137 mmol/L (137-145); Total Bilirubin 0.9 mg/dL (0.2-1.3); Total Protein 6.2 g/dL (6.3-8.2)
--- NOTE | 2024-06-24 08:36 | P.PN ---
Subjective Progress Note Date: 06/24/24 This is an 84-year-old female who presented to the emergency department with complaints of aphasia. Symptoms started approximately 30 minutes prior to arrival. EMS reports that patient had significant aphasia that did improve during transport to the emergency room. Patient does not have any history of p rior strokes, she is not on any blood thinners. Patient reports no numbness or weakness of her extremities. Patient's speech has improved since admission, but is still slurred at times. When asked the date for today, she said Friday. 06/24/2024 Patient seen and evaluated laying in bed this morning. She is more alert today and speech has improved. Family had concern for possible uti due to patient's confusion and a UA was ordered. Plan today is for an MRI and an echo. Speech therapy has been working with patient and report her speech has improved, however of concern for coughing when patient eats. Speech therapy is planning a MBS for today. Objective - Vital Signs Vital signs: Vital Signs Temp 98.1 F 06/23/24 20:15 Pulse 54 L 06/24/24 03:07 Resp 18 06/24/24 03:07 BP 152/67 06/24/24 03:07 Pulse Ox 96 06/24/24 03:07 FiO2 Intake & Output 06/23/24 06/24/24 06/24/24 18:59 06:59 18:59 Weight 57 kg Other: Voiding Method Toilet Toilet # Voids 1 - Constitutional General appearance: Present: cooperative, no acute distress - EENT Eyes: Present: PERRLA - Neck Neck: Present: normal ROM. Absent: lymphadenopathy, rigidity - Respiratory Respiratory: bilateral: CTA - Cardiovascular Rhythm: regular Heart sounds: normal: S1, S2 - Gastrointestinal General gastrointestinal: Present: soft. Absent: tenderness - Integumentary Integumentary: Present: normal, normal turgor - Musculoskeletal Musculoskeletal: Present: generalized weakness - Psychiatric Psychiatric: Present: A&O x's 3 - Labs CBC & Chem 7: 06/24/24 06:35 06/24/24 06:35 Labs: Abnormal Lab Results - Last 24 Hours (Table) 06/24/24 06/24/24 Range/Units 06:35 06:35 Hgb 11.3 L (11.4-16.0) gm/dL BUN 22 H (7-17) mg/dL Total Protein 6.2 L (6.3-8.2) g/dL Assessment and Plan (1) Aphasia Current Visit: Yes Status: Acute Code(s): R47.01 - APHASIA SNOMED Code(s): 45730245 (2) Hypertension Current Visit: Yes Status: Acute Code(s): I10 - ESSENTIAL (PRIMARY) HYPERTENSION SNOMED Code(s): 66511877 (3) History of [place] (myocardial infarction) Current Visit: Yes Status: Acute Code(s): I25.2 - OLD MYOCARDIAL INFARCTION SNOMED Code(s): 327298109 Plan: Await echo and MRI result Check CBC and CMP in the morning UA has been ordered, not collected yet Patient seen and evaluated by nurse practitioner, physician in agreement with plan
--- NOTE | 2024-06-24 15:29 | FL ---
EXAMINATION TYPE: FL barium swallow w video DATE OF EXAM: 06/24/2024 CLINICAL HISTORY: 84-year-old female with CVA and coughing at the bedside, assess for aspiration TECHNIQUE: Deglutition study is performed utilizing thin liquid barium, nectar thick liquid barium, barium thick pudding, and barium coated cracker. COMPARISON: None. Total fluoroscopy time 2 minutes 27 seconds. Total images: None. Real-time fluoroscopy support was provided to speech pathology. Total DAP: 75 mGycm2. FINDINGS: There is mild silent aspiration encountered with thin liquids. This improved after chin tuck and with more thicker consistencies. No other penetration or aspiration is seen during the course of the exam . IMPRESSION: Mild silent aspiration with thin liquids which improves with a thickener and also with chin tuck mis uver. Please refer to speech therapist notes for further details if necessary. [facility], , 06/24/2024 3:26 PM
--- NOTE | 2024-06-24 15:53 | P.PN ---
Subjective Progress Note Date: 06/24/24 I am following-up with patient and her speech is drastically better and is more cooperative. Objective - Vital Signs Vital signs: Vital Signs Temp 97.7 F 06/24/24 12:00 Pulse 56 L 06/24/24 12:00 Resp 16 06/24/24 12:00 BP 119/55 06/24/24 12:00 Pulse Ox 97 06/24/24 12:00 FiO2 Intake & Output 06/23/24 06/24/24 06/24/24 18:59 06:59 18:59 Intake Total 120 Balance 120 Weight 57 kg Intake: Oral 120 Other: Voiding Method Toilet Toilet Toilet # Voids 1 - Exam General: Lying in bed and not in acute distress. Is sleeping. Neuro: Patient is awake, alert, oriented to self and stated she is in the hospital. She stated the is 1999 something. She correctly named objects (pen and watch). Has expressive aphasia but drastially better today compared to past few days. Is following simple commands. No facial weakness. No dysathria. Motor: Is lifting all extremities above gravity equally. Some of the workup during this hospital visit consisted of: Initial serum glucose is 126 Serum alcohol is <10. TSH is 1.720 Lipid panel also triglyceride 169, cholesterol 132, LDL is 49 and HDL is 48. CT of the head is reported as no acute intracranial process. I personally reviewed the CT and agree with the report. CT angiography of the head and neck is reported as no evidence of dissection of cervical internal carotid artery or vertebral artery or any evidence of significant stenosis at the carotid bifurcation. No evidence of intracranial vascular occlusion. 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 Code stroke was activated by the ED physician since came within [place]. The ED physician spoke with Dr. Rubio. NIH stroke scale per ED team is 2-3 patient had mild aphasia, possible dysarthria and this seems that she had some orientation issue. ED physician possibly the patient has dysarthria due to the aphasia as well as towards the end the patient remains to have mild aphasia. The stroke attending recommended no IV thrombolytic and recommended medical management. I assume he recommended that because of the risk outweigh the benefit. - Labs CBC & Chem 7: 06/24/24 06:35 06/24/24 06:35 Labs: Abnormal Lab Results - Last 24 Hours (Table) 06/24/24 06/24/24 Range/Units 06:35 06:35 Hgb 11.3 L (11.4-16.0) gm/dL BUN 22 H (7-17) mg/dL Total Protein 6.2 L (6.3-8.2) g/dL Assessment and Plan Assessment: This is an 84-year-old woman who presents the emergency department on 06/21/2024 because of expressive aphasia. Per the ED team NIH stroke scale was 2-3 and cod e stroke was activated and no IV TNK was recommended by stroke attending and per ED physician had mild aphasia. Today patient has severe expressive aphasia and wants to go home. Acute expressive aphasia likely due to acute ischemic stroke---today her language is better but not back to baseline. 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 Plan: Continue aspirin 325 mg by ED physician (at home was on 81mg daily). In addition, I started Plavix 75mg daily. Continue Lipitor 40mg daily for secondary stroke prophylaxis. Pending MRI of the brain, 2D echo Continue neurochecks Cardiac monitoring PT OT and STEEPING PRESS TENDER are consulted Recommend normotensive blood pressure. Will defer the rest of the medical management to primary and other specialist Family is concerned patient might have UTI and wants consideration of testing and I will defer to primary team. For DVT prophylaxis the patient is on subcu heparin 5000 units every 8 hours. Time with Patient: Less than 30
--- NOTE | 2024-06-24 16:14 | MR ---
MRI brain without contrast. HISTORY: Expressive aphasia, acute CVA. COMPARISON: None. TECHNIQUE: Multiecho multiplanar images the brain were obtained without contrast. FINDINGS: On the T1-weighted sagittal images, the midline structures including the craniovertebral junction rel ationships are normal. The ventricles, basal cisterns and sulci over the convexities are moderately enlarged consistent with moderate age appropriate atrophy. No abnormal signal intensity is seen throughout the brain parenchy ma. On the diffusion-weighted images, there are multiple focal areas within the left temporal cortex, lef t insular cortex, left parietal cortex and left centrum semiovale white matter, consistent with a cherelle wer of emboli resulting in multiple acute ischemic events in the left middle cerebral artery distribu tion. On the susceptibility weighted images, there is no evidence of hemorrhage. The posterior fossa including the brainstem, fourth ventricle and cerebellar pontine angles appear no rmal. The intraorbital contents appear normal and symmetric. Visualized paranasal sinuses and mastoid air c ells are well aerated. IMPRESSION: Multiple acute ischemic events consistent with a shower of emboli in the left middle cerebral artery distribution involving the left temporal lobe, left insular cortex, white matter of the centrum semio rodo and cortex of the left parietal lobe. [facility], , 06/24/2024 4:12 PM
[2024-06-25 06:33] LABS: HCT 37.4 % (34.0-46.0); MCH 28.9 pg (25.0-35.0); MCHC 32.2 g/dL (31.0-37.0); MCV 89.9 fL (80.0-100.0); Mean Platelet Volume 8.8; Platelet Count 291 k/uL (150-450); RBC 4.16 m/uL (3.80-5.40); RDW 13.4 % (11.5-15.5); WBC 8.6 k/uL (3.8-10.6)
[2024-06-25 06:43] LABS: ALT 18 U/L (4-34); AST 40 U/L (14-36); African American GFR (CKD) 52 (>60 ml/min/1.73 sqM); Albumin 4.3 g/dL (3.5-5.0); Alkaline Phosphatase 89 U/L (38-126); Anion Gap 8 mmol/L; Blood Urea Nitrogen 31 mg/dL (7-17); Calcium 9.6 mg/dL (8.4-10.2); Carbon Dioxide 21 mmol/L (22-30); Chloride 107 mmol/L (98-107); Glucose 129 mg/dL (74-99); Non-African American GFR(CKD) 45 (>60 ml/min/1.73 sqM); Potassium 4.3 mmol/L (3.5-5.1); Sodium 136 mmol/L (137-145); Total Bilirubin 1.2 mg/dL (0.2-1.3); Total Protein 6.9 g/dL (6.3-8.2)
[2024-06-25 11:41] VITALS: BMI 19.1
--- NOTE | 2024-06-25 12:09 | CA ---
Transthoracic Echo Report Name: Eugenie Milian Age: 84 Gender: F : 1940 Exam Date: 06/25/2024 09:56 Exam Location: [facility] Ht (in): 67 Wt (lb): 125 Ordering Physician: Dayton Bustillo MD Attending/Referring Phys: Ent Physician Caitlin Disla RDCS Procedure CPT: Indications: stroke Cardiac Hx: Technical Quality: Fair Contrast 1: Total Dose (mL): Contrast 2: Total Dose (mL): MEASUREMENTS (Male / Female) Normal Values 2D ECHO LV Diastolic Diameter PLAX 4.0 cm 4.2 - 5.9 / 3.9 - 5.3 cm LV Systolic Diameter PLAX 2.6 cm IVS Diastolic Thickness 1.2 cm 0.6 - 1.0 / 0.6 - 0.9 cm LVPW Diastolic Thickness 1.6 cm 0.6 - 1.0 / 0.6 - 0.9 cm LV Relative Wall Thickness 0.7 RV Internal Dim ED PLAX 2.1 cm LVOT Diameter 1.9 cm LA Systolic Diameter LX 3.2 cm 3.0 - 4.0 / 2.7 - 3.8 cm LV Diastolic Volume MOD BP 37.8 cm??? 67 - 155 / 56 - 104 cm??? LV Systolic Volume MOD BP 18.7 cm??? 22 - 58 / 19 - 49 cm??? LV Ejection Fraction MOD BP 50.5 % >= 55 % LV Cardiac Index MOD BP 760.6 cm???/min???m??? LV Diastolic Volume MOD 4C 34.3 cm??? LV Systolic Volume MOD 4C 16.4 cm??? LV Ejection Fraction MOD 4C 52.1 % LV Cardiac Index MOD 4C 711.1 cm???/min???m??? LV Diastolic Length 4C 5.8 cm LV Systolic Length 4C 5.0 cm LV Diastolic Volume MOD 2C 41.1 cm??? LV Systolic Volume MOD 2C 21.3 cm??? LV Ejection Fraction MOD 2C 48.2 % LV Cardiac Index MOD 2C 789.8 cm???/min???m??? LV Diastolic Length 2C 5.9 cm LV Systolic Length 2C 5.2 cm LA Volume 56.9 cm??? 18 - 58 / 22 - 52 cm??? LA Volume Index 34.9 cm???/m??? 16 - 28 cm???/m??? M-MODE Aortic Root Diameter MM 3.0 cm LA Systolic Diameter MM 3.0 cm LA Ao Ratio MM 1.0 AV Cusp Separation MM 1.8 cm DOPPLER AV Peak Velocity 140.0 cm/s AV Peak Gradient 7.8 mmHg AV Mean Velocity 94.1 cm/s AV Mean Gradient 4.0 mmHg AV Velocity Time Integral 36.5 cm LVOT Peak Velocity 70.6 cm/s LVOT Peak Gradient 2.0 mmHg LVOT Velocity Time Integral 21.4 cm LVOT Stroke Volume 62.0 cm??? LVOT Stroke Volume Index 37.4 ml/m??? LVOT Cardiac Index 2469.4 cm???/min???m??? AV Area Cont Eq vti 1.7 cm??? AV Area Cont Eq pk 1.5 cm??? MV Area PHT 1.9 cm??? Mitral E Point Velocity 43.8 cm/s Mitral A Point Velocity 88.0 cm/s Mitral E to A Ratio 0.5 MV Deceleration Time 410.0 ms TR Peak Velocity 186.2 cm/s TR Peak Gradient 13.9 mmHg FINDINGS Left Ventricle Left ventricular ejection fraction is estimated at 50-55%. Mid lateral and basal lateral hypokinesis.Moderately increased left ventricular wall thickness. Right Ventricle Normal right ventricular size and function. Right ventricular systolic pressure within normal limits. Right Atrium Mild right atrial dilatation. Left Atrium Mildly increased left atrial volume. Mitral Valve Structurally normal mitral valve. Mild mitral regurgitation. No mitral stenosis.mitral annular calcification. Aortic Valve Trileaflet aortic valve. Diffuse thickening of the aortic valve cusps with reduced excursion. Focal thickening of the aortic valve cusps. No aortic stenosis. No aortic regurgitation. Tricuspid Valve Structurally normal tricuspid valve. Mild tricuspid regurgitation. No tricuspid stenosis. Pulmonic Valve Structurally normal pulmonic valve. No pulmonic regurgitation. No pulmonic stenosis. Pericardium No pericardial or pleural effusion. Echo free space anterior to the right ventricle likely represents a fat pad. Aorta Normal size aortic root and proximal ascending aorta. CONCLUSIONS 1. Left ventricle systolic function borderline normal with segmental wall motion abnormality 2. Mild mitral and tricuspid regurgitation with no evidence of pulmonary hypertension 3. Severely calcified aortic valve Previewed by: Dr. Yeni Holm MD (Electronically Signed) Final Date: 25 June 2024 12:08
--- NOTE | 2024-06-25 12:55 | P.PN ---
Subjective Principal diagnosis: CVA. The patient is much more alert. MRI does show element of left hemispheric CVA. She does have oral Xanax written as needed. Much more alert. Objective - Vital Signs Vital signs: Vital Signs Temp 97.7 F 06/24/24 20:40 Pulse 68 06/25/24 12:00 Resp 16 06/25/24 12:00 BP 154/69 06/25/24 12:00 Pulse Ox 97 06/25/24 12:00 FiO2 Intake & Output 06/24/24 06/25/24 06/25/24 18:59 06:59 18:59 Intake Total 120 360 Balance 120 360 Weight 55.3 kg 55.3 kg Intake: Oral 120 360 Other: Voiding Method Toilet Toilet # Voids 1 - Constitutional General appearance: Present: average body habitus, cooperative, no acute distress - Cardiovascular Rhythm: regular Heart sounds: normal: S1, S2 Abnormal Heart Sounds: Absent: S3 Gallop - Gastrointestinal General gastrointestinal: Present: soft. Absent: tenderness - Integumentary Integumentary: Absent: cellulitis - Labs CBC & Chem 7: 06/25/24 06:10 06/25/24 06:10 Labs: Abnormal Lab Results - Last 24 Hours (Table) 06/25/24 Range/Units 06:10 Sodium 136 L (137-145) mmol/L Carbon Dioxide 21 L (22-30) mmol/L BUN 31 H (7-17) mg/dL Creatinine 1.11 H (0.52-1.04) mg/dL Glucose 129 H (74-99) mg/dL AST 40 H (14-36) U/L Assessment and Plan (1) Aphasia Current Visit: Yes Status: Acute Code(s): R47.01 - APHASIA SNOMED Code(s): 49125153 (2) Cerebrovascular accident (CVA) Current Visit: Yes Status: Acute Code(s): I63.9 - CEREBRAL INFARCTION, UNSPECIFIED SNOMED Code(s): 078060089 (3) History of AK (myocardial infarction) Current Visit: Yes Status: Acute Code(s): I25.2 - OLD MYOCARDIAL INFARCTION SNOMED Code(s): 634727188 (4) Hypertension Current Visit: Yes Status: Acute Code(s): I10 - ESSENTIAL (PRIMARY) HYPERTENSION SNOMED Code(s): 16049012 Plan: Continues speech therapy with PT and OT. Home health versus rehab element. Continue anticoagulation. Anticipate discharge in the next 24-48 hours
--- NOTE | 2024-06-25 13:00 | P.PN ---
Subjective Progress Note Date: 06/25/24 I am following-up with patient and her daughter is at bedside and does agree her speech is drastically better but not 100% back to baseline. Per nurse, there is questionable A-fib but unsure for sure. Objective - Vital Signs Vital signs: Vital Signs Temp 97.7 F 06/24/24 20:40 Pulse 68 06/25/24 12:00 Resp 16 06/25/24 12:00 BP 154/69 06/25/24 12:00 Pulse Ox 97 06/25/24 12:00 FiO2 Intake & Output 06/24/24 06/25/24 06/25/24 18:59 06:59 18:59 Intake Total 120 360 Balance 120 360 Weight 55.3 kg 55.3 kg Intake: Oral 120 360 Other: Voiding Method Toilet Toilet # Voids 1 - Exam General: Lying in bed and not in acute distress. Is sleeping. Neuro: Patient is awake, alert, oriented to self and stated she is in the hospital. She stated the year is 1999 something. She correctly named objects (pen and watch). Has expressive aphasia but drastially better today compared to past few days. Is following simple commands. No facial weakness. No dysathria. Motor: Is lifting all extremities above gravity equally. Some of the workup during this hospital visit consisted of: Panel is triglyceride 169, cholesterol is 132, LDL is 49 and HDL is 48. Serum alcohol is <10. TSH is 1.720 Lipid panel also triglyceride 169, cholesterol 132, LDL is 49 and HDL is 48. CT of the head is reported as no acute intracranial process. I personally reviewed the CT and agree with the report. CT angiography of the head and neck is reported as no evidence of dissection of cervical internal carotid artery or vertebral artery or any evidence of signi ficant stenosis at the carotid bifurcation. No evidence of intracranial vascular occlusion. 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 MRI Brain: It is reported as multiple acute ischemic event consistent with shower of embolic in the left middle cerebral artery distribution involving the left temporal lobe, left insular cortex, white matter of the centrum semi of valve and cortex of the left parietal lobe. - Labs CBC & Chem 7: 06/25/24 06:10 06/25/24 06:10 Labs: Abnormal Lab Results - Last 24 Hours (Table) 06/25/24 Range/Units 06:10 Sodium 136 L (137-145) mmol/L Carbon Dioxide 21 L (22-30) mmol/L BUN 31 H (7-17) mg/dL Creatinine 1.11 H (0.52-1.04) mg/dL Glucose 129 H (74-99) mg/dL AST 40 H (14-36) U/L Assessment and Plan Assessment: This is an 84-year-old woman who presents the emergency department on 06/21/2024 because of expressive aphasia. Per the ED team NIH stroke scale was 2-3 and code stroke was activated and no IV TNK was recommended by stroke attending and per ED physician had mild aphasia. Today patient has severe expressive aphasia and wants to go home. Acute ischemic stroke in the left MCA distribution and patient presents with severe expressive aphasia and her expressive aphasia is drastically better compared to initial presentation but not back to baseline. Eer the nurse there is questionable A-fib and if she does that seems the cause of stroke. 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 Plan: Continue aspirin 325 mg by ED physician (at home was on 81mg daily). In addition, I started Plavix 75mg daily. There is questionable A-fib and I notified the nurse if she does have A-fib then notified me and therefore to consult cardiology and I would recommend then rather than antiplatelet patient needs to be on anticoagulation. Continue Lipitor 40mg daily for secondary stroke prophylaxis. 2D echo report is pending. If unknown cause of stroke will obtain KEERTHI and recommend a 30 days event monitor. Continue neurochecks Cardiac monitoring PT OT and [employer]QU[employer] INSPECTOR are consulted Recommend normotensive blood pressure. Will defer the rest of the medical management to primary and other specialist Family is concerned patient might have UTI and wants consideration of testing and I will defer to primary team. For DVT prophylaxis the patient is on subcu heparin 5000 units every 8 hours. Plan discussed with patient's daughter who is at bedside as well as nurse Time with Patient: Less than 30
--- NOTE | 2024-06-25 13:10 | P.CRDCN ---
History of Present Illness Consult date: 06/25/24 Consult reason: atrial fibrillation History of present illness: This is an 84-year-old female patient of Dr. Holm with past medical history of coronary artery disease status post stent in 2019, hypertension, dyslipidemia. Patient presented to the hospital on 06/21 with expressive aphasia and worked up for acute CVA. MRI of the brain reveals multiple acute ischemic events consistent with a shower of emboli in the left middle cerebral artery distribution involving the left temporal lobe, left insular cortex, white matter of the centrum semiovale and cortex of the left parietal lobe. Reviewed EKG and telemetry strips. It appears that patient is having episodes of atrial fibrillation between sinus rhythm. EKG: #1 sinus rhythm with occasional PVCs at 79 bpm, #2 sinus rhythm with PVCs 70 bpm Echocardiogram reveals EF of 50 to 55%, mild MR and mild TR, no evidence of pulmonary hypertension, severely calcified aortic valve. Chest x-ray: No acute process Laboratory studies: CBC unremarkable. Sodium 136, potassium 4.3, BUN 31 crea tinine 1.11. Triglycerides 169, cholesterol 132, LDL 49, HDL 48. TSH 1.72. Home cardiac medications: Atorvastatin 10 mg daily, clonidine 0.1 mg twice daily, enalapril 20 mg twice daily, hydrochlorothiazide 25 mg daily, metoprolol tartrate 25 mg twice daily. Review Of Systems: At the time of my exam: CONSTITUTIONAL: Denies fever or chills. HEENT: Denies blurred vision, vision changes, or eye pain. Denies hemoptysis CARDIOVASCULAR: Denies chest pain. Denies orthopnea. Denies PND. Denies palpit ations RESPIRATORY: Denies shortness of breath. GASTROINTESTINAL: Denies abdominal pain. Denies nausea or vomiting. HEMATOLOGIC: Denies bleeding disorders. GENITOURINARY: Denies any blood in urine. SKIN: Denies puritis. Denies rash. Physical examination: Gen: This is a thin 84-year-old female in no acute distress VS: reviewed HEENT: Head is atraumatic, normocephalic. Pupils equal, round. Sclerae is anicteric. NECK: Supple. No JVD. LUNGS: Clear to auscultation. No wheezes or rhonchi. No intercostal retractions. HEART: Irregular rate and rhythm. Systolic ejection murmur, holosystolic murmur at the apex. ABDOMEN: Soft No tenderness. EXTREMITIES: No pedal edema. No calf tenderness. NEUROLOGICAL: Patient is awake, alert and oriented x3. Assessment: Acute CVA Paroxysmal atrial fibrillation, rate controlled intermittent with sinus rhythm Coronary artery disease with previous stenting Hypertension Dyslipidemia Plan: Continue patient's home cardiac medications Start patient on Eliquis 2.5 mg twice daily Discontinue aspirin and subcu heparin Continue Plavix and metoprolol Further recommendations to follow based upon clinical course Thank you kindly for this consultation. Nurse practitioner note has been reviewed, I agree with documented findings and plan of care. Patient was seen and examined. Past Medical History Past Medical History: Hypertension, Myocardial Infarction (MS) Last Myocardial Infarction Date:: 09/15/2003 History of Any Multi-Drug Resistant Organisms: None Reported Past Surgical History: Heart Catheterization With Stent Additional Past Surgical History / Comment(s): 1 cardiac stent Date of Last Stent Placement:: 09/15/2003 Smoking Status: Never smoker Medications and Allergies Home Medications Medication Instructions Recorded Confirmed Type Atorvastatin [Lipitor] 10 mg PO DAILY 06/21/24 06/21/24 History Enalapril Maleate 20 mg PO BID 06/21/24 06/21/24 History Metoprolol Tartrate [Lopressor] 25 mg PO BID 06/21/24 06/21/24 History Omeprazole [PriLOSEC] 20 mg PO DAILY 06/21/24 06/21/24 History cloNIDine HCL [Catapres] 0.1 mg PO BID 06/21/24 06/21/24 History hydroCHLOROthiazide [Hydrodiuril] 25 mg PO DAILY 06/21/24 06/21/24 History Allergies Allergy/AdvReac Type Severity Reaction Status Date / Time No Known Allergies Allergy Verified 06/21/24 19:51 Physical Exam Vitals: Vital Signs Temp Pulse Resp BP Pulse Ox 06/25/24 12:00 68 16 154/69 97 06/25/24 08:47 82 16 120/68 97 06/25/24 04:56 97 16 106/65 99 06/24/24 23:16 60 16 120/58 98 06/24/24 20:40 97.7 F 71 16 125/73 96 06/24/24 16:00 64 16 153/66 99 Intake and Output 06/24/24 06/25/24 06/25/24 22:59 06:59 14:59 Intake Total 360 Balance 360 Intake: Oral 360 Other: Voiding Method Toilet Toilet # Voids 1 1 Weight 55.3 kg 55.3 kg Results 06/25/24 06:10 06/25/24 06:10 Cardiac Enzymes 06/25/24 Range/Units 06:10 AST 40 H (14-36) U/L CBC 06/25/24 Range/Units 06:10 WBC 8.6 (3.8-10.6) k/uL RBC 4.16 (3.80-5.40) m/uL Hgb 12.0 (11.4-16.0) gm/dL Hct 37.4 (34.0-46.0) % Plt Count 291 (150-450) k/uL Comprehensive Metabolic Panel 06/25/24 Range/Units 06:10 Sodium 136 L (137-145) mmol/L Potassium 4.3 (3.5-5.1) mmol/L Chloride 107 (98-107) mmol/L Carbon Dioxide 21 L (22-30) mmol/L BUN 31 H (7-17) mg/dL Creatinine 1.11 H (0.52-1.04) mg/dL Glucose 129 H (74-99) mg/dL Calcium 9.6 (8.4-10.2) mg/dL AST 40 H (14-36) U/L ALT 18 (4-34) U/L Alkaline Phosphatase 89 (38-126) U/L Total Protein 6.9 (6.3-8.2) g/dL Albumin 4.3 (3.5-5.0) g/dL Current Medications Generic Name Dose Route Start Last Admin Trade Name Freq PRN Reason Stop Dose Admin Acetaminophen 650 mg 06/21/24 20:57 Acetaminophen Tab 325 Mg Tab PO Q6HR PRN Mild Pain or Fever > 100.5 Al Hydroxide/Mg Hydroxide 15 ml 06/21/24 20:57 Mag Hydrox/Al Hydrox/Simeth 30 Ml Cup PO Q6HR PRN Indigestion Alprazolam 0.25 mg 06/21/24 20:57 06/23/24 09:41 Alprazolam 0.25 Mg Tab PO 0.25 mg Q6HR PRN Administration Anxiety Aspirin 325 mg 06/22/24 09:00 06/25/24 08:48 Aspirin 325 Mg Tab PO 325 mg DAILY GASTON Administration Atorvastatin Calcium 40 mg 06/23/24 09:00 06/25/24 08:49 Atorvastatin 40 Mg Tab PO 40 mg DAILY GASTON Administration Calcium Carbonate/Glycine 1,000 mg 06/21/24 20:57 Calcium Carbonate 500 Mg Chewable PO Q4HR PRN Dyspepsia Clonidine 0.1 mg 06/22/24 09:00 06/25/24 08:48 Clonidine Hcl 0.1 Mg Tab PO 0.1 mg BID GASTON Administration Clopidogrel Bisulfate 75 mg 06/22/24 17:15 06/25/24 08:48 Clopidogrel 75 Mg Tab PO 75 mg DAILY GASTON Administration Famotidine 20 mg 06/21/24 21:30 06/24/24 20:46 Famotidine 20 Mg Tab PO 20 mg HS GASTON Administration Heparin Sodium (Porcine) 5,000 unit 06/22/24 00:00 06/25/24 08:49 Heparin Sodium,Porcine 5,000 Unit/Ml 1 Ml Vial SQ 5,000 unit Q8HR GASTON Administration Hydrochlorothiazide 25 mg 06/22/24 09:00 06/25/24 08:48 Hydrochlorothiazide 25 Mg Tab PO 25 mg DAILY GASTON Administration Dextrose/Sodium Chloride 1,000 mls @ 50 mls/hr 06/21/24 23:30 06/25/24 08:49 Dextrose 5%-Ns Iv Soln IV Not Given .Q20H GASTON Lisinopril 40 mg 06/22/24 09:00 06/25/24 08:48 Lisinopril 20 Mg Tab PO 40 mg BID GASTON Administration Lorazepam 0.5 mg 06/23/24 11:06 Lorazepam 2 Mg/Ml Inj IV Q6HR PRN Anxiety Metoprolol Tartrate 25 mg 06/22/24 09:00 06/25/24 08:49 Metoprolol Tartrate 25 Mg Tab PO 25 mg BID GASTON Administration Naloxone HCl 0.2 mg 06/21/24 20:52 Naloxone 0.4 Mg/Ml 1 Ml Vial IV Q2M PRN Opioid Reversal Tramadol HCl 50 mg 06/21/24 20:57 Tramadol 50 Mg Tab PO Q6H PRN Moderate Pain (Scale 4 to 6) Intake and Output 06/24/24 06/25/24 06/25/24 22:59 06:59 14:59 Intake Total 360 Balance 360 Intake: Oral 360 Other: Voiding Method Toilet Toilet # Voids 1 1 Weight 55.3 kg 55.3 kg Patient Weight 06/26/24 06:59 Weight 55.3 kg 06/25/24 06:10 06/25/24 06:10
[2024-06-25] MEDS ORDERED: APIXABAN 5 MG TAB PO SCH (13:30)
[2024-06-25] MEDS: APIXABAN 2.5 MG TABLET PO SCH (16:19)
[2024-06-26 07:33] LABS: Appearance,Urine Cloudy (Clear); Bacteria,Urine Rare /hpf; Bilirubin,Urine Negative (Negative); Blood,Urine Negative (Negative); Color,Urine Light Yellow; Glucose,Urine (UA) Negative (Negative); Hyaline Casts,Urine 17 /lpf (0-2); Ketones,Urine Negative (Negative); Leukocyte Esterase,Urine Large (Negative); Mucus,Urine Rare /hpf; Nitrite,Urine Negative (Negative); Protein,Urine Negative (Negative); RBC,Urine 6 /hpf (0-5); Specific Gravity,Urine 1.015 (1.001-1.035); Squamous Epithelial Cell,Urine 1 /hpf (0-4); Urobilinogen,Urine <2.0 mg/dL (<2.0); WBC,Urine 164 /hpf (0-5)
[2024-06-26 07:36] LABS: Basophils % (A) 1 %; Eosinophils # (A) 0.3 k/uL (0-0.7); Eosinophils % (A) 5 %; HCT 35.5 % (34.0-46.0); HGB 11.7 gm/dL (11.4-16.0); Lymphocytes # (A) 1.5 k/uL (1.0-4.8); Lymphocytes % (A) 26 %; MCH 29.6 pg (25.0-35.0); MCHC 32.9 g/dL (31.0-37.0); MCV 89.8 fL (80.0-100.0); Mean Platelet Volume 8.5; Monocytes # (A) 0.4 k/uL (0-1.0); Monocytes % (A) 7 %; Neutrophils # (A) 3.3 k/uL (1.3-7.7); Neutrophils % (A) 59 %; Platelet Count 266 k/uL (150-450); RBC 3.96 m/uL (3.80-5.40); RDW 13.5 % (11.5-15.5); WBC 5.6 k/uL (3.8-10.6)
[2024-06-26 07:58] LABS: African American GFR (CKD) 55 (>60 ml/min/1.73 sqM); Anion Gap 8 mmol/L; Blood Urea Nitrogen 40 mg/dL (7-17); Calcium 9.1 mg/dL (8.4-10.2); Carbon Dioxide 26 mmol/L (22-30); Chloride 103 mmol/L (98-107); Glucose 97 mg/dL (74-99); Non-African American GFR(CKD) 47 (>60 ml/min/1.73 sqM); Potassium 4.5 mmol/L (3.5-5.1); Sodium 137 mmol/L (137-145)
--- NOTE | 2024-06-26 09:07 | P.PN ---
Subjective This is a pleasant 84 years old female with multiple medical problems, she was admitted initially because of slurred speech and expressive aphasia thought secondary to acute stroke, MRI of the brain showing left middle cerebral artery showering emboli. Cardiology team were consulted and they are following closely. Patient is recommended to have KEERTHI which is deferred to cardiology team. Also Plavix was added. Patient is on gentle hydration Family were concerned patient having UTI however on exam patient denies any signs and symptoms of UTI, no suprapubic pain or tenderness. Analysis suspicious for UTI however patient with no symptoms currently. No fever or leukocytosis. Will keep monitoring. Chest x-ray is negative for acute process CTA of the head and neck is negative for acute process but showing moderate to severe stenosis of bilateral carotid siphones Swallow evaluation showing mild silent aspiration with thin liquid but improved with thick liquid Alcohol less than 10, TSH is normal creatinine slightly up at 1.1 this morning 1.07. Review of systems CONSTITUTIONAL: No fever, no malaise, no fatigue. HEENT: No recent visual problems or hearing problems. Denied any sore throat. CARDIOVASCULAR: No orthopnea, PND, no palpitations, no syncope. PULMONARY: No shortness of breath, no cough, no hemoptysis. GASTROINTESTINAL: No diarrhea, no nausea, no vomiting, no abdominal pain. Normoactive bowel sounds. -NEUROLOGICAL: No headaches, no weakness, no numbness. Except what is mentioned above Active Medications Generic Name Dose Route Start Last Admin Trade Name Freq PRN Reason Stop Dose Admin Acetaminophen 650 mg 06/21/24 20:57 Acetaminophen Tab 325 Mg Tab PO Q6HR PRN Mild Pain or Fever > 100.5 Al Hydroxide/Mg Hydroxide 15 ml 06/21/24 20:57 Mag Hydrox/Al Hydrox/Simeth 30 Ml Cup PO Q6HR PRN Indigestion Alprazolam 0.25 mg 06/21/24 20:57 06/25/24 18:29 Alprazolam 0.25 Mg Tab PO 0.25 mg Q6HR PRN Administration Anxiety Atorvastatin Calcium 40 mg 06/23/24 09:00 06/26/24 07:46 Atorvastatin 40 Mg Tab PO 40 mg DAILY GASTON Administration Calcium Carbonate/Glycine 1,000 mg 06/21/24 20:57 Calcium Carbonate 500 Mg Chewable PO Q4HR PRN Dyspepsia Clonidine 0.1 mg 06/22/24 09:00 06/26/24 07:46 Clonidine Hcl 0.1 Mg Tab PO 0.1 mg BID GASTON Administration Clopidogrel Bisulfate 75 mg 06/22/24 17:15 06/26/24 07:45 Clopidogrel 75 Mg Tab PO 75 mg DAILY GASTON Administration Enoxaparin Sodium 40 mg 06/26/24 09:15 Enoxaparin 40 Mg/0.4 Ml Syringe SQ DAILY GASTON Famotidine 20 mg 06/21/24 21:30 06/25/24 20:15 Famotidine 20 Mg Tab PO 20 mg HS GASTON Administration Hydrochlorothiazide 25 mg 06/22/24 09:00 06/26/24 07:46 Hydrochlorothiazide 25 Mg Tab PO 25 mg DAILY GASTON Administration Dextrose/Sodium Chloride 1,000 mls @ 50 mls/hr 06/21/24 23:30 06/26/24 04:37 Dextrose 5%-Ns Iv Soln IV Not Given .Q20H GASTON Lisinopril 40 mg 06/22/24 09:00 06/26/24 07:46 Lisinopril 20 Mg Tab PO 40 mg BID GASTON Administration Lorazepam 0.5 mg 06/23/24 11:06 Lorazepam 2 Mg/Ml Inj IV Q6HR PRN Anxiety Metoprolol Tartrate 25 mg 06/22/24 09:00 06/26/24 07:46 Metoprolol Tartrate 25 Mg Tab PO 25 mg BID GASTON Administration Naloxone HCl 0.2 mg 06/21/24 20:52 Naloxone 0.4 Mg/Ml 1 Ml Vial IV Q2M PRN Opioid Reversal Tramadol HCl 50 mg 06/21/24 20:57 Tramadol 50 Mg Tab PO Q6H PRN Moderate Pain (Scale 4 to 6) Objective - Vital Signs Vital signs: Vital Signs Temp 97.7 F 06/24/24 20:40 Pulse 55 L 06/26/24 04:00 Resp 16 06/26/24 04:00 BP 109/61 06/26/24 04:00 Pulse Ox 98 06/26/24 04:00 FiO2 Intake & Output 06/25/24 06/26/24 06/26/24 18:59 06:59 18:59 Intake Total 600 Output Total 200 Balance 600 -200 Weight 55.3 kg Intake: Oral 600 Output: Urine 200 Other: Voiding Method Toilet # Voids 1 - Exam -GENERAL: The patient is alert and oriented x3, not in any acute distress. Well developed, well nourished. Generally weak HEENT: Pupils are round and equally reacting to light. EOMI. No scleral icterus. No conjunctival pallor. Normocephalic, atraumatic. No pharyngeal erythema. No thyromegaly. CARDIOVASCULAR: S1 and S2 present. No murmurs, rubs, or gallops. PULMONARY: Chest is clear to auscultation, no wheezing , no crackles. ABDOMEN: Soft, nontender, nondistended, normoactive bowel sounds. No palpable organomegaly. MUSCULOSKELETAL: No joint swelling or deformity. EXTREMITIES: No cyanosis, clubbing, or pedal edema. NEUROLOGICAL: Gross neurological examination did not reveal any focal deficits. SKIN: No rashes. no petechiae. - Labs CBC & Chem 7: 06/26/24 06:55 06/26/24 06:55 Labs: Abnormal Lab Results - Last 24 Hours (Table) 06/26/24 06/26/24 Range/Units 06:30 06:55 BUN 40 H (7-17) mg/dL Creatinine 1.07 H (0.52-1.04) mg/dL Urine Appearance Cloudy H (Clear) Ur Leukocyte Esterase Large H (Negative) Urine RBC 6 H (0-5) /hpf Urine WBC 164 H (0-5) /hpf Urine Bacteria Rare H (None) /hpf Hyaline Casts 17 H (0-2) /lpf Urine Mucus Rare H (None) /hpf Assessment and Plan Assessment: Acute stroke with expressive aphasia with MRI showing multiple show with a number of emboli of the left MCA territory Metabolic encephalopathy and secondary to above Paroxysmal atrial fibrillation Chronic kidney disease stage III Generalized weakness Hypertension Asymptomatic bacteriuria Plan: Continue with Plavix Neurology and cardiology service On the case Patient may require KEERTHI, thus deferred to cardiology and neurology services Continue with antihypertensive medication Monitor for signs symptoms of infection, monitor for fever or WBC count. Keep monitoring while off antibiotic Labs and medication were reviewed.. Continue same treatment. Continue with symptomatic treatment. Resume home medication. Monitor labs and vitals. DVT and GI prophylaxis. Further recommendations as per clinical course of the patient DVT prophylaxis: Subcutaneous h Lovenox GI Prophylaxis: Pepcid PT/OT: Pending Prognosis is guarded
[2024-06-26] MEDS: ENOXAPARIN 40 MG/0.4 ML SYRINGE SQ SCH (10:28)
--- NOTE | 2024-06-26 15:45 | P.PN ---
Subjective Progress Note Date: 06/26/24 On follow-up with the patient and it seems that the patient has paroxysmal atrial fibrillation and cardiology has recommended Eliquis. Overnight patient was agitated restless but otherwise feels about the same. Objective - Vital Signs Vital signs: Vital Signs Temp 97.7 F 06/26/24 08:00 Pulse 68 06/26/24 11:38 Resp 15 06/26/24 11:38 BP 105/58 06/26/24 11:38 Pulse Ox 95 06/26/24 11:38 FiO2 Intake & Output 06/25/24 06/26/24 06/26/24 18:59 06:59 18:59 Intake Total 600 540 Output Total 200 Balance 600 -200 540 Weight 55.3 kg Intake: Oral 600 540 Output: Urine 200 Other: Voiding Method Toilet Toilet # Voids 1 2 - Exam General: Lying in bed and not in acute distress. Is sleeping. Neuro: Patient is awake, alert, oriented to self and stated she is in the hospital. She stated the year is 1999 something. She correctly named objects (pen and watch). Has expressive aphasia but drastially better today compared to past few days. Is following simple commands. No facial weakness. No dysathria. Motor: Is lifting all extremities above gravity equally. Some of the workup during this hospital visit consisted of: Panel is triglyceride 169, cholesterol is 132, LDL is 49 and HDL is 48. Serum alcohol is <10. TSH is 1.720 Lipid panel also triglyceride 169, cholesterol 132, LDL is 49 and HDL is 48. CT of the head is reported as no acute intracranial process. I personally reviewed the CT and agree with the report. CT angiography of the head and neck is reported as no evidence of dissection of cervical internal carotid artery or vertebral artery or any evidence of significant stenosis at the carotid bifurcation. No evidence of intracranial vascular occlusion. 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 MRI Brain: It is reported as multiple acute ischemic event consistent with shower of embolic in the left middle cerebral artery distribution involving the left temporal lobe, left insular cortex, white matter of the centrum semi of valve and cortex of the left parietal lobe. - Labs CBC & Chem 7: 06/26/24 06:55 06/26/24 06:55 Labs: Abnormal Lab Results - Last 24 Hours (Table) 06/26/24 06/26/24 Range/Units 06:30 06:55 BUN 40 H (7-17) mg/dL Creatinine 1.07 H (0.52-1.04) mg/dL Urine Appearance Cloudy H (Clear) Ur Leukocyte Esterase Large H (Negative) Urine RBC 6 H (0-5) /hpf Urine WBC 164 H (0-5) /hpf Urine Bacteria Rare H (None) /hpf Hyaline Casts 17 H (0-2) /lpf Urine Mucus Rare H (None) /hpf Assessment and Plan Assessment: This is an 84-year-old woman who presents the emergency department on 06/21/2024 because of expressive aphasia. Per the ED team NIH stroke scale was 2-3 and code stroke was activated and no IV TNK was recommended by stroke attending and per ED physician had mild aphasia. Today patient has severe expressive aphasia and wants to go home. Acute ischemic stroke in the left MCA distribution and patient presents with severe expressive aphasia and her expressive aphasia is drastically better compared to initial presentation but not back to baseline. 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 Plan: From a neurology perspective because of the A-fib recommend starting anticoagulation starting tomorrow in which cardiology recommended Eliquis. Avoid today to avoid hemorrhagic conversion but if the risk outweigh the benefit recommend heparin drip and avoid boluses and keep PTT between 45 and 60. I discontinued aspirin in which she was on home aspirin. I started the patient on Plavix during this hospital visit before knowing about her underlying new onset A-fib. Since the patient has A-fib no need for Plavix and will discuss this with cardiology whether they need any antiplatelet coverage. Continue Lipitor 40mg daily for secondary stroke prophylaxis. Cardiology is consulted. Continue neurochecks Cardiac monitoring PT OT and GREASE REFINER OPERATOR are consulted Recommend normotensive blood pressure. Will defer the rest of the medical management to primary and other specialist Plan discussed with patient's daughter who is at bedside. Time with Patient: Less than 30
--- NOTE | 2024-06-26 18:14 | P.PN ---
Subjective Progress Note Date: 06/26/24 This is an 84-year-old female patient of Dr. Holm with past medical history of coronary artery disease status post stent in 2019, hypertension, dyslipidemia. Patient presented to the hospital on 06/21 with expressive aphasia and worked up for acute CVA. MRI of the brain reveals multiple acute ischemic events consistent with a shower of emboli in the left middle cerebral artery distribution involving the left temporal lobe, left insular cortex, white matter of the centrum semiovale and cortex of the left parietal lobe. Reviewed EKG and telemetry strips. It appears that patient is having episodes of atrial fibrillation between sinus rhythm. EKG: #1 sinus rhythm with occasional PVCs at 79 bpm, #2 sinus rhythm with PVCs 70 bpm Echocardiogram reveals EF of 50 to 55%, mild MR and mild TR, no evidence of pulmonary hypertension, severely calcified aortic valve. Chest x-ray: No acute process Laboratory studies: CBC unremarkable. Sodium 136, potassium 4.3, BUN 31 creatinine 1.11. Triglycerides 169, cholesterol 132, LDL 49, HDL 48. TSH 1.72. Home cardiac medications: Atorvastatin 10 mg daily, clonidine 0.1 mg twice daily, enalapril 20 mg twice daily, hydrochlorothiazide 25 mg daily, metoprolol tartrate 25 mg twice daily. Progress note June 26, 2024 patient is denying having any chest pain chest pressure. Blood pressure 105/58, heart rate 68 bpm Hemoglobin 11.7, BUN 40, creatinine 1.07. Physical examination: HEENT: Head is atraumatic, normocephalic. Pupils equal, round. Sclerae is anicteric. NECK: Supple. No JVD. LUNGS: Clear to auscultation. No wheezes or rhonchi. No intercostal retractions. HEART: Irregular rate and rhythm. Systolic ejection murmur, holosystolic murmur at the apex. ABDOMEN: Soft No tenderness. EXTREMITIES: No pedal edema. No calf tenderness. NEUROLOGICAL: Patient is awake, alert and oriented x3. Assessment: Acute CVA Paroxysmal atrial fibrillation, rate controlled intermittent with sinus rhythm Coronary artery disease with previous stenting Hypertension Dyslipidemia Plan: Due to mildly uptrending creatinine, I will optimize her antihypertensives. She is on lisinopril 40 mg twice daily which is not appropriate. I will reduce lisinopril to 40 mg daily. She is also on HCTZ which increases risk of dehydration and geriatric population and can worsen CKD. I will discontinue HCTZ. As an alternative I am adding amlodipine 5 mg daily. She is on clonidine 0.1 mg twice daily which is not recommended antihypertensives in this age group especially after CVA. However I will leave this decision to her primary care team. Monitor blood pressure and heart rate Continue Eliquis 2.5 mg twice daily because of paroxysmal atrial fibrillation. Continue Plavix. Hold aspirin, continue high intensity statin. Patient would not benefit from a KEERTHI as patient is already on systemic anticoagulation which would protect her from any paradoxical emboli if any from PFO. Anyway she is above the age of 70 where the indication of PFO closure is minimal. Objective - Vital Signs Vital signs: Vital Signs Temp 98.1 F 06/26/24 15:49 Pulse 65 06/26/24 15:49 Resp 16 06/26/24 15:49 BP 94/51 06/26/24 15:49 Pulse Ox 98 06/26/24 15:49 FiO2 Intake & Output 06/25/24 06/26/24 06/26/24 18:59 06:59 18:59 Intake Total 600 780 Output Total 200 Balance 600 -200 780 Weight 55.3 kg Intake: Oral 600 780 Output: Urine 200 Other: Voiding Method Toilet Toilet # Voids 1 1 # Bowel Movements 1 - Labs CBC & Chem 7: 06/26/24 06:55 06/26/24 06:55 Labs: Abnormal Lab Results - Last 24 Hours (Table) 06/26/24 06/26/24 Range/Units 06:30 06:55 BUN 40 H (7-17) mg/dL Creatinine 1.07 H (0.52-1.04) mg/dL Urine Appearance Cloudy H (Clear) Ur Leukocyte Esterase Large H (Negative) Urine RBC 6 H (0-5) /hpf Urine WBC 164 H (0-5) /hpf Urine Bacteria Rare H (None) /hpf Hyaline Casts 17 H (0-2) /lpf Urine Mucus Rare H (None) /hpf
[2024-06-27] MEDS: amLODIPine 5 MG TAB PO SCH (08:33)
[2024-06-27] MEDS: lisinopriL 20 MG TAB PO SCH (08:34)
--- NOTE | 2024-06-27 11:40 | P.PN ---
Subjective Progress Note Date: 06/27/24 This is an 84-year-old female patient of Dr. Holm with past medical history of coronary artery disease status post stent in 2019, hypertension, dyslipidemia. Patient presented to the hospital on 06/21 with expressive aphasia and worked up for acute CVA. MRI of the brain reveals multiple acute ischemic events consistent with a shower of emboli in the left middle cerebral artery distribution involving the left temporal lobe, left insular cortex, white matter of the centrum semiovale and cortex of the left parietal lobe. Reviewed EKG and telemetry strips. It appears that patient is having episodes of atrial fibrillation between sinus rhythm. EKG: #1 sinus rhythm with occasional PVCs at 79 bpm, #2 sinus rhythm with PVCs 70 bpm Echocardiogram reveals EF of 50 to 55%, mild MR and mild TR, no evidence of pulmonary hypertension, severely calcified aortic valve. Chest x-ray: No acute process Laboratory studies: CBC unremarkable. Sodium 136, potassium 4.3, BUN 31 creatinine 1.11. Triglycerides 169, cholesterol 132, LDL 49, HDL 48. TSH 1.72. Home cardiac medications: Atorvastatin 10 mg daily, clonidine 0.1 mg twice daily, enalapril 20 mg twice daily, hydrochlorothiazide 25 mg daily, metoprolol tartrate 25 mg twice daily. Progress note June 26, 2024 patient is denying having any chest pain chest pressure. Blood pressure 105/58, heart rate 68 bpm Hemoglobin 11.7, BUN 40, creatinine 1.07. June 27, 2024 We do not have today's labs to review her kidney function. Blood pressure has been fluctuant few readings around 110 systolic couple of readings are around 140 systolic. On telemetry her heart rate is around 60 bpm sinus mechanism. Physical examination: HEENT: Head is atraumatic, normocephalic. Pupils equal, round. Sclerae is anicteric. NECK: Supple. No JVD. LUNGS: Clear to auscultation. No wheezes or rhonchi. No intercostal retractions. HEART: Irregular rate and rhythm. Systolic ejection murmur, holosystolic murmur at the apex. ABDOMEN: Soft No tenderness. EXTREMITIES: No pedal edema. No calf tenderness. NEUROLOGICAL: Patient is awake, alert and oriented x3. Assessment: Acute CVA Paroxysmal atrial fibrillation, rate controlled intermittent with sinus rhythm Coronary artery disease with previous stenting Hypertension Dyslipidemia Plan: I have optimize her antihypertensives. She is on lisinopril 40 mg twice daily which is not appropriate. I will reduce lisinopril to 40 mg daily. She is also on HCTZ which increases risk of dehydration and geriatric population and can worsen CKD. I will discontinue HCTZ. As an alternative I am adding amlodipine 5 mg daily. Blood pressure is stable on this regimen. She is on clonidine 0.1 mg twice daily which is not recommended antihypertensives in this age group especially after CVA. However I will leave this decision to her primary care team. Monitor blood pressure and heart rate Continue Eliquis 2.5 mg twice daily because of paroxysmal atrial fibrillation. Continue Plavix. Hold aspirin, continue high intensity statin. Patient would not benefit from a KEERTHI as patient is already on systemic anticoagulation which would protect her from any paradoxical emboli if any from PFO. Anyway she is above the age of 70 where the indication of PFO closure is minimal. At this time patient is stable from cardiovascular standpoint. Cardiology team will sign off. Please reconsult us in case of any question. Objective - Vital Signs Vital signs: Vital Signs Temp 97.5 F L 06/27/24 08:00 Pulse 61 06/27/24 11:32 Resp 16 06/27/24 11:32 BP 123/57 06/27/24 11:32 Pulse Ox 98 06/27/24 11:32 FiO2 Intake & Output 06/26/24 06/27/24 06/27/24 18:59 06:59 18:59 Intake Total 780 480 Output Total 0 Balance 780 0 480 Intake: Oral 780 480 Output: Urine 0 Other: Voiding Method Toilet Toilet Toilet # Voids 1 1 # Bowel Movements 1 - Labs CBC & Chem 7: 06/26/24 06:55 06/26/24 06:55
--- NOTE | 2024-06-27 12:23 | P.PN ---
Subjective Progress Note Date: 06/27/24 I am following with patient and per family with she is about the same and no new neurological issues. Cardiology has started her on eliqius today 2.5mg bid. Objective - Vital Signs Vital signs: Vital Signs Temp 97.5 F L 06/27/24 08:00 Pulse 61 06/27/24 11:32 Resp 16 06/27/24 11:32 BP 123/57 06/27/24 11:32 Pulse Ox 98 06/27/24 11:32 FiO2 Intake & Output 06/26/24 06/27/24 06/27/24 18:59 06:59 18:59 Intake Total 780 480 Output Total 0 Balance 780 0 480 Intake: Oral 780 480 Output: Urine 0 Other: Voiding Method Toilet Toilet Toilet # Voids 1 1 # Bowel Movements 1 - Labs CBC & Chem 7: 06/26/24 06:55 06/26/24 06:55 Assessment and Plan Assessment: This is an 84-year-old woman who presents the emergency department on 06/21/2024 because of expressive aphasia. Per the ED team NIH stroke scale was 2-3 and code stroke was activated and no IV TNK was recommended by stroke attending and per ED physician had mild aphasia. Today patient has severe expressive aphasia and wants to go home. Acute ischemic stroke in the left MCA distribution and patient presents with severe expressive aphasia and her expressive aphasia is drastically better compared to initial presentation but not back to baseline. 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 Plan: For the A-fib the top closer has started her on eliquis 2.5mg bid today and we are in agreement. I started the patient on Plavix during this hospital visit before knowing about her underlying new onset A-fib. Since the patient has A-fib no need for Plavix and will discuss this with cardiology whether they need any antiplatelet coverage. Prior to this admission she was on ASA 81mg daily. I have relayed this message to primary team. Continue Lipitor 40mg daily for secondary stroke prophylaxis. Cardiology is consulted. Continue neurochecks Cardiac monitoring PT OT and EGG CRATER are consulted Recommend normotensive blood pressure. Will defer the rest of the medical management to primary and other specialist Upon discharge, recommend the patient to follow-up with neurologist as outpatient within 2-3 wekes. Plan discussed with patient's daughter who is at bedside and primary attending. Dr. Reynoso will resume neurology service tomorrow A.M. Time with Patient: Less than 30
--- NOTE | 2024-06-27 16:03 | P.PN ---
Subjective This is a pleasant 84 years old female with multiple medical problems, she was admitted initially because of slurred speech and expressive aphasia thought secondary to acute stroke, MRI of the brain showing left middle cerebral artery showering emboli. Cardiology team were consulted and they are following closely. Patient is recommended to have KEERTHI which is deferred to cardiology team. Also Plavix was added. Patient is on gentle hydration Family were concerned patient having UTI however on exam patient denies any signs and symptoms of UTI, no suprapubic pain or tenderness. Analysis suspicious for UTI however patient with no symptoms currently. No fever or leukocytosis. Will keep monitoring. Chest x-ray is negative for acute process CTA of the head and neck is negative for acute process but showing moderate to severe stenosis of bilateral carotid siphones Swallow evaluation showing mild silent aspiration with thin liquid but improved with thick liquid Alcohol less than 10, TSH is normal creatinine slightly up at 1.1 this morning .. 06/27 Patient mentation at baseline, daughter at bedside and she thinks she is doing well, no aphasia, no weakness No UTI symptoms and patient and daughter agreed no need for antibiotic for now Family and patient request PT evaluation tomorrow which is requested I discussed the case with the neurology team who recommended to continue with Eliquis per private chef restart her for A-fib. However the recommended no need for Plavix which was discontinued. They want to decide about aspirin 81 mg which is one of our medication with her PCP. Dr. Dowling will resume the care of the patient tomorrow. Today he already received Plavix today which is discontinued now. I discussed this recommendation with the staff. And family will discuss to start aspirin with Dr. Dowling tomorrow Norvasc and lisinopril 40 mg added as well Review of systems CONSTITUTIONAL: No fever, no malaise, no fatigue. HEENT: No recent visual problems or hearing problems. Denied any sore throat. CARDIOVASCULAR: No orthopnea, PND, no palpitations, no syncope. HEMATOLOGICAL: Denies any bleeding or petechiae. GENITOURINARY: Denies any burning micturition, frequency, or urgency. MUSCULOSKELETAL/RHEUMATOLOGICAL: Denies any joint pain, swelling, or any muscle pain. ENDOCRINE: Denies any polyuria or polydipsia. Active Medications Generic Name Dose Route Start Last Admin Trade Name Freq PRN Reason Stop Dose Admin Acetaminophen 650 mg 06/21/24 20:57 Acetaminophen Tab 325 Mg Tab PO Q6HR PRN Mild Pain or Fever > 100.5 Al Hydroxide/Mg Hydroxide 15 ml 06/21/24 20:57 Mag Hydrox/Al Hydrox/Simeth 30 Ml Cup PO Q6HR PRN Indigestion Alprazolam 0.25 mg 06/21/24 20:57 06/25/24 18:29 Alprazolam 0.25 Mg Tab PO 0.25 mg Q6HR PRN Administration Anxiety Amlodipine Besylate 5 mg 06/27/24 09:00 06/27/24 08:33 Amlodipine 5 Mg Tab PO 5 mg DAILY GASTON Administration Apixaban 2.5 mg 06/27/24 21:00 Apixaban 2.5 Mg Tablet PO BID [facility] Protocol Atorvastatin Calcium 40 mg 06/23/24 09:00 06/27/24 08:33 Atorvastatin 40 Mg Tab PO 40 mg DAILY GASTON Administration Calcium Carbonate/Glycine 1,000 mg 06/21/24 20:57 Calcium Carbonate 500 Mg Chewable PO Q4HR PRN Dyspepsia Clonidine 0.1 mg 06/22/24 09:00 06/27/24 08:34 Clonidine Hcl 0.1 Mg Tab PO 0.1 mg BID GASTON Administration Famotidine 20 mg 06/21/24 21:30 06/26/24 21:25 Famotidine 20 Mg Tab PO 20 mg HS GASTON Administration Dextrose/Sodium Chloride 1,000 mls @ 50 mls/hr 06/21/24 23:30 06/27/24 12:35 Dextrose 5%-Ns Iv Soln IV Not Given .Q20H GASTON Lisinopril 40 mg 06/27/24 09:00 06/27/24 08:34 Lisinopril 20 Mg Tab PO 40 mg DAILY GASTON Administration Lorazepam 0.5 mg 06/23/24 11:06 Lorazepam 2 Mg/Ml Inj IV Q6HR PRN Anxiety Metoprolol Tartrate 25 mg 06/22/24 09:00 06/27/24 08:33 Metoprolol Tartrate 25 Mg Tab PO 25 mg BID GASTON Administration Naloxone HCl 0.2 mg 06/21/24 20:52 Naloxone 0.4 Mg/Ml 1 Ml Vial IV Q2M PRN Opioid Reversal Tramadol HCl 50 mg 06/21/24 20:57 Tramadol 50 Mg Tab PO Q6H PRN Moderate Pain (Scale 4 to 6) Objective - Vital Signs Vital signs: Vital Signs Temp 97.5 F L 06/27/24 03:54 Pulse 49 L 06/27/24 03:54 Resp 17 06/27/24 03:54 BP 98/57 06/27/24 03:54 Pulse Ox 98 06/27/24 03:54 FiO2 Intake & Output 06/26/24 06/27/24 06/27/24 18:59 06:59 18:59 Intake Total 780 Output Total 0 Balance 780 0 Intake: Oral 780 Output: Urine 0 Other: Voiding Method Toilet Toilet # Voids 1 # Bowel Movements 1 - Exam -GENERAL: The patient is alert and oriented x3, not in any acute distress. Well developed, well nourished. Generally weak HEENT: Pupils are round and equally reacting to light. EOMI. No scleral icterus. No conjunctival pallor. Normocephalic, atraumatic. No pharyngeal erythema. No thyromegaly. CARDIOVASCULAR: S1 and S2 present. No murmurs, rubs, or gallops. PULMONARY: Chest is clear to auscultation, no wheezing , no crackles. ABDOMEN: Soft, nontender, nondistended, normoactive bowel sounds. No palpable organomegaly. MUSCULOSKELETAL: No joint swelling or deformity. EXTREMITIES: No cyanosis, clubbing, or pedal edema. NEUROLOGICAL: Gross neurological examination did not reveal any focal deficits. SKIN: No rashes. no petechiae. - Labs CBC & Chem 7: 06/26/24 06:55 06/26/24 06:55 Assessment and Plan Assessment: Acute stroke with expressive aphasia with MRI showing multiple show with a number of emboli of the left MCA territory Metabolic encephalopathy and secondary to above Paroxysmal atrial fibrillation Chronic kidney disease stage III Generalized weakness Hypertension Asymptomatic bacteriuria Plan: C discontinue Plavix per Neurology service. Will discuss starting aspirin [address] Dowling tomorrow Started on Eliquis Cardiology input is appreciated. Continue with lisinopril and add Norvasc close monitor blood pressure and creatinine Neurology and cardiology service On the case Continue with antihypertensive medication Monitor for signs symptoms of infection, monitor for fever or WBC count. Keep monitoring while off antibiotic Labs and medication were reviewed.. Continue same treatment. Continue with symptomatic treatment. Resume home medication. Monitor labs and vitals. DVT and GI prophylaxis. Further recommendations as per clinical course of the patient DVT prophylaxis: Subcutaneous h Lovenox GI Prophylaxis: Pepcid PT/OT: Pending Prognosis is guarded
[2024-06-27] MEDS: APIXABAN 2.5 MG TABLET PO SCH (21:47)
--- NOTE | 2024-06-28 08:34 | P.DS ---
Providers Date of admission: 06/21/24 21:01 Attending physician: Magdiel Dowling Consults: 06/21/24 20:57 Consult Physician Routine Consulting Provider: Dayton Bustillo Consult Reason/Comments: CVA Do you want consulting provider notified?: Yes, Notify in am 06/25/24 12:19 Consult Physician Routine Consulting Provider: Andrés Lu Consult Reason/Comments: afib, stroke Do you want consulting provider notified?: Yes 06/25/24 13:00 Consult Physician Routine Consulting Provider: Andrés Lu Consult Reason/Comments: KEERTHI and ?a-fib Do you want consulting provider notified?: Yes Primary care physician: Magdiel Dowling - Discharge Diagnosis(es) (1) Aphasia Current Visit: Yes Status: Acute (2) Hypertension Current Visit: Yes Status: Acute (3) History of NV (myocardial infarction) Current Visit: Yes Status: Acute (4) Atrial fibrillation Current Visit: Yes Status: Acute (5) Cerebrovascular accident (CVA) Current Visit: Yes Status: Acute Hospital Course: This is an 84-year-old female who presented to the emergency department with complaints of slurred speech and expressive aphasia. 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 Patient also diagnosed with atrial fibrillation during this admission. Patient was started on Eliquis and has been tolerating with no issues. Patient has been seen and evaluated by cardiology and neurology. She has been seen and evaluated by therapies, speech therapy is recommended thickened liquids and no straws. Patient may be discharged home today, home care has been consulted and family will be checking in frequently. Patient seen and evaluated by nurse practitioner, physician in agreement with plan. Patient Condition at Discharge: Stable Plan - Discharge Summary Discharge Rx Participant: No New Discharge Prescriptions: New Apixaban [Eliquis] 2.5 mg PO BID 30 Days #60 tab Atorvastatin [Lipitor] 40 mg PO DAILY 30 Days #30 tab amLODIPine [Norvasc] 5 mg PO DAILY 30 Days #30 tab lisinopriL [Zestril] 40 mg PO DAILY 30 Days #30 tab Continue Omeprazole [PriLOSEC] 20 mg PO DAILY Metoprolol Tartrate [Lopressor] 25 mg PO BID Discontinued cloNIDine HCL [Catapres] 0.1 mg PO BID Atorvastatin [Lipitor] 10 mg PO DAILY hydroCHLOROthiazide [Hydrodiuril] 25 mg PO DAILY Enalapril Maleate 20 mg PO BID Discharge Medication List Metoprolol Tartrate [Lopressor] 25 mg PO BID 06/21/24 [History] Omeprazole [PriLOSEC] 20 mg PO DAILY 06/21/24 [History] Apixaban [Eliquis] 2.5 mg PO BID 30 Days #60 tab 06/28/24 [Rx] Atorvastatin [Lipitor] 40 mg PO DAILY 30 Days #30 tab 06/28/24 [Rx] amLODIPine [Norvasc] 5 mg PO DAILY 30 Days #30 tab 06/28/24 [Rx] lisinopriL [Zestril] 40 mg PO DAILY 30 Days #30 tab 06/28/24 [Rx] Follow up Appointment(s)/Referral(s): Magdiel Dowling MD [Primary Care Provider] - 1 Week [facility] Visiting Nurse, [NON-STAFF] - Activity/Diet/Wound Care/Special Instructions: Pureed diet, no straw, aspiration precautions, nectar thickened liquids Needs to f/u with outpatient neuro in 2-3 weeks Discharge/Stand Alone Forms: Who Do I Call? Discharge Disposition: HOME WITH HOME HEALTH SERVICES
[2024-06-28 08:56] VITALS: BP 120/73; PULSE 69; RESP 17; TEMP 97.6
== END 2024-06-28 10:32 | disposition home health service (06) | DRG 64 ==
LOC: EC 18:13 → 3SCARD 21:01
PROVIDERS: ADMIT Family Medicine; ATTEND Family Medicine
DX: I63.412 Cerebral infarction due to embolism of left middle cerebral artery (principal); G93.41 Metabolic encephalopathy; G93.49 Other encephalopathy; I65.23 Occlusion and stenosis of bilateral carotid arteries; R47.81 Slurred speech; E78.5 Hyperlipidemia, unspecified; I25.10 Atherosclerotic heart disease of native coronary artery without angina pectoris; I48.0 Paroxysmal atrial fibrillation; I49.3 Ventricular premature depolarization; N18.30 Chronic kidney disease, stage 3 unspecified; I12.9 Hypertensive chronic kidney disease with stage 1 through stage 4 chronic kidney disease, or unspecified chronic kidney disease; R29.704 NIHSS score 4; R47.01 Aphasia; R82.71 Bacteriuria; I25.2 Old myocardial infarction; Z79.899 Other long term (current) drug therapy; Z95.5 Presence of coronary angioplasty implant and graft; Z79.82 Long term (current) use of aspirin
CPT/HCPCS: 36415; 70450; 70496; 70498; 70551; 71046; 74230; 80048; 80053; 80061; 80320; 81001; 82550; 84443; 84484; 85025; 85027; 85610; 85730; 93005; 93306; 96361; 96374; 96376; 99291